=== PATIENT | female | born 1950 | race Caucasian/White ===

== ENCOUNTER 2020-11-04 15:34 | Outpatient (CLI) | payer MEDICARE, SELFPAY ==
[2020-11-04 17:01] LABS: Free T4 Free Thyroxine 0.88 ng/mL (0.78-2.19)
[2020-11-04 17:16] LABS: Thyroid Stimulating Hormone 0.936 uIU/mL (0.465-4.680)
== END 2020-11-04 15:35 | disposition home or self-care (01) ==
PROVIDERS: PCP Internal Medicine; Visit Provider Internal Medicine Endocrinology, Diabetes & Metabolism
DX: E04.1 Nontoxic single thyroid nodule (principal)
CPT/HCPCS: 36415; 84439; 84443

== ENCOUNTER 2021-10-28 16:25 | Outpatient (CLI) | payer MEDICARE, SELFPAY ==
--- NOTE | ~2021-10-28 | US_ITS ---
US thyroid INDICATION: Thyroid nodules TECHNIQUE: Real-time sonographic images of the thyroid gland were obtained. COMPARISON: No prior studies for comparison. FINDINGS: The right thyroid lobe measures 4.8 x 1.2 x 1.2 cm. The left thyroid lobe measures 5 x 1.5 x 1.6 cm. In the right lobe at the lower pole there is a mixed solid and cystic hypoechoic mass which is wider than tall, smoothly marginated and coarse echogenic foci (TR 4). In the left lobe there is a 1.7 cm c yst. Also in the left lobe there is a mixed solid and cystic hypoechoic nodule which is wider than ta ll, smoothly marginated and no echogenic foci (TR 3). IMPRESSION: 1. Small bilateral thyroid nodules, likely benign, which do not meet sonographic criteria for biopsy . Reviewed, dictated and finalized at location A. IMPRESSION: 1. Small bilateral thyroid nodules, likely benign, which do not meet sonograph ic criteria for biopsy.
== END 2021-10-28 16:26 | disposition home or self-care (01) ==
PROVIDERS: PCP Physician Assistant Medical; Visit Provider Internal Medicine Endocrinology, Diabetes & Metabolism
DX: E04.1 Nontoxic single thyroid nodule (principal)
CPT/HCPCS: 76536

== ENCOUNTER 2021-12-28 11:49 | Outpatient (CLI) | payer MEDICARE, SELFPAY ==
[2021-12-28 12:56] LABS: Free T4 Free Thyroxine 0.88 ng/mL (0.78-2.19)
== END 2021-12-28 11:50 | disposition home or self-care (01) ==
LOC: ANHLAB 11:52
PROVIDERS: PCP Physician Assistant Medical; Visit Provider Nurse Practitioner Family
DX: E04.1 Nontoxic single thyroid nodule (principal)
CPT/HCPCS: 36415; 84439; 84443

== ENCOUNTER 2021-12-30 09:53 | Outpatient (CLI) | payer MEDICARE, SELFPAY ==
--- NOTE | 2021-12-30 11:03 | ECG_ITS ---
Measurements Intervals [place] Rate: 67 P: 29 MA: 182 QRS: 19 QRSD: 64 T: 7 QT: 407 QTc: 430 Interpretive Statements SINUS RHYTHM LOW QRS VOLTAGE IN PRECORDIAL LEADS BASELINE ARTIFACT- I, II, III, AVR, AVL, AVF, V1-V6 BORDERLINE ECG NO PREVIOUS ECG AVAILABLE FOR COMPARISON Electronically Signed On 12-30-2021 12:39:48 CDT by Franko Stovall D.O.
[2021-12-30 11:56] LABS: Urine Cotinine NEGATIVE
[2021-12-30 11:59] LABS: Basophils Percent Auto 0.3 % (0.2-1.2); Eosinophils Absolute Auto 0.1 K/mm3 (0-0.3); Eosinophils Percent Auto 1.4 % (0-4.4); Hematocrit 38.1 % (37.0-47.0); Hemoglobin 13.2 g/dL (12.0-15.0); Immature Granulocyte Absolute 0.02 K/mm3 (0.00-0.031); Immature Granulocyte Percent A 0.3 % (0-0.5); Lymphocytes Absolute Auto 1.42 K/mm3 (0.9-3.2); Lymphocytes Percent Auto 24.4 % (18.3-44.2); Mean Corpuscular HGB Conc 34.6 g/dl (32-36); Mean Corpuscular Volume 103.8 fl (80-100); Mean Platelet Volume 10.9 fl (7.4-10.4); Monocytes Absolute Auto 0.5 K/mm3 (0.1-0.6); Monocytes Percent Auto 7.7 % (2.6-8.5); Neutrophils Absolute Auto 3.8 K/mm3 (1.3-6.7); Neutrophils Percent Auto 65.9 % (45.5-73.1); Platelet Count Result 177 k/mm3 (150-375); Red Blood Count 3.67 M/mm3 (4.2-5.4); Red Cell Distribution Width 12.2 % (11.5-14.5); White Blood Count 5.8 K/mm3 (4.5-10.0)
[2021-12-30 12:13] LABS: Albumin Level 4.3 g/dL (3.5-5.1); Estimated Glomerular Filt Rate > 60; Glucose 105 mg/dL (65-110)
[2021-12-30 14:27] LABS: Hemoglobin A1C 5.2 % (<5.7)
== END 2021-12-30 09:54 | disposition home or self-care (01) ==
LOC: ANHSURGERY 09:57
PROVIDERS: PCP Physician Assistant Medical; Visit Provider Orthopaedic Surgery
DX: Z01.818 Encounter for other preprocedural examination (principal); M17.12 Unilateral primary osteoarthritis, left knee
CPT/HCPCS: 80307; 82040; 82565; 82947; 83036; 85025; 86850; 86900; 86901; 87081; 93005

== ENCOUNTER 2022-01-10 08:56 | Outpatient (CLI) | payer MEDICARE, SELFPAY ==
--- NOTE | ~2022-01-10 | DEXA_ITS ---
Bone Density Report Name: BRICE PIERRE Age: 71 Sex: Female Ethnicity: White Date of : 1950 Indication: postmenopausal; screening for osteoporosis; prior fracture; Referring Provider: KUNAL PRADO Study: Bone densitometry was performed. Exam Date: January 10, 2022 Accession number: [id number] Bone Density: Region BMD T-score Z-score Classification AP Spine(L3, L4) 1.129 0.3 2.5 Normal World Health Organization criteria for BMD impression classify patients as: Normal (T-score at or above -1.0), Osteopenia (T-score between -1.0 and -2.5), or Osteoporosis (T-score at or below -2.5). Clinical Information Provided by Patient: Has had a low trauma fracture Has used the following medications: Vitamin D, Calcium Patient maximum height was 65 Menopause Age: 44 No regular weight bearing exercise Drinks caffeinated beverages Onset of menses at age 14 Number of children 2 Impression: The patient has normal bone mass. The patient has risk factors, including: previous fracture. Discussion: LOW RISK OF FRACTURE; BONE DENSITY IS WELL ABOVE THE MINIMUM DESIRABLE LEVEL AND ABOVE AVERAGE FOR AGE AND SEX AT ALL SKELETAL SITES TESTED. This person's bone density is above expected limits for age and sex. This is rarely clinically significant, but should be pursued if there are significant musculoskeletal complaints. The patient should follow a healthful lifestyle (good nutrition with adequate calcium and vitamin D, and appropriate weight-bearing exercise). Follow-Up: Consider repeating this study in 5 years or sooner if there is some new clinical indication. Reported by: [facility] on 01/10/2022 9:17:00 AM. Reviewed, dictated and finalized at location ANarendra PEREZ
== END 2022-01-10 08:57 | disposition home or self-care (01) ==
PROVIDERS: PCP Physician Assistant Medical; Visit Provider Internal Medicine Endocrinology, Diabetes & Metabolism
DX: Z78.0 Asymptomatic menopausal state (principal); E04.1 Nontoxic single thyroid nodule
CPT/HCPCS: 77080

== ENCOUNTER 2022-01-11 00:38 | Day surgery (SDC) | payer MEDICARE, SELFPAY ==
[2021-12-30 10:04] VITALS: BMI 32.3
--- NOTE | 2021-12-30 10:31 | PC.NURSE ---
Report to the Outpatient Waiting Room, entrance under the green pavilion located off [facility], at time ____0600___ on date _01/11/22 . OR Time: __729 . Time changes happen often and if your time is changed the preop area will call you the afternoon before. - You and your visitor will be asked to self-screen and do not enter if you have any COVID symptoms. - Only one visitor and NO children visitors are allowed at this time. - The patient visitor is requested to leave or wait in car when not with patient due to restrictions. - A mask is required within the hospital. Patients may have clear liquids (water, carbonated beverages, clear teas, apple juice) until 3 hours prior to surgery with a maximum of 20 ounces. - No food from midnight until time of surgery - Infants may have breast milk until 4 hours before surgery, infant formula 6 hours prior to surgery. - Children will be allowed to drink immediately following surgery. If applicable, please bring a bottle or sippy cup to assist with drinking. Juice, water, soda, and popsicles are readily available. For infants on formula, please bring formula the day of surgery. Pacifiers are allowed. Take the following medications with a SIP of water the morning of surgery: _CITALOPRAM Medications to discontinue per physician ___ALEVE PER DR KENDALL. ALL VITAMINS AND SUPPLEMENTS 3 DAYS PRE OP Date to take last dose___01/07/22 Please no make-up, nail ivorian, hairspray, perfume, deodorant, or body powder the day of surgery. No jewelry (including any body piercings) or valuables the day of surgery, leave them at home. Please take a shower or bath the night before, or the morning of, surgery with an antibacterial soap. Wear comfortable, loose fitting clothing. Children are encouraged to wear pajamas. - Jewelry must be removed prior to entering the operating room. Rings and piercings that are not removed may be cut off. - The hospital will not accept responsibility for valuables. - Please leave all valuables, including medications, at home the day of surgery. If you are going home after surgery, a licensed national flatbed truck driver must drive you home. - NO public transportation without another adult. - We recommend that an adult stay with you for 24 hours following discharge. - We also recommend that you do not drive, make important decision, drink alcoholic beverages, or take any drugs that were not prescribed by your health care provider for at least 24 hours after your discharge time. For Pediatric surgeries, we recommend two adults accompany the child home (only one inside the building at this time). Follow any additional instructions given to you from your surgeon. If you or anyone in your household have experienced Covid symptoms in the past week, please notify your surgeon or the nurse liaison at the phone number below for possible testing. VERBAL AND WRITTEN nstructions given to ___PATIENT and asked if any additional questions and then verbalized understanding. Patient advised to call surgeon office or pre surgery nurse liaison [phone] if any additional questions.
[2021-12-30 10:58] VITALS: BP 146/86; PULSE 72; RESP 18; TEMP 36.7; O2SAT 97
--- NOTE | 2022-01-09 12:53 | PM.IMHP ---
H&P: HPI History of Present Illness Date/Time: 01/09/22 12:53 Chief Complaint: Left knee pain due to advanced primary osteoarthritis. The patient is a 71-year-old female who is a chronic ongoing history of pain localized the left knee despite conservative measures including cortisone therapy and anti-inflammatories her symptoms continue. The patient has aching pain worse with activities and relieved by rest. X-rays show advanced fnlo-ua-[id number] osteoarthritis in the medial and patellofemoral articulations of the left knee. At this point the patient has discussed further treatment options in detail with Dr. Early she has failed conservative measures including recent Gel shot series she would now like to proceed with a total knee arthroplasty. Review of Systems Review of Systems: 10 point review of systems otherwise negative [facility] Surgical History Surgical History History of hip replacement, total Family History Family History Other Asthma Cerebrovascular accident Diabetes mellitus Family history of arthritis Family history of cardiovascular disease Family history of osteoporosis Family history of thyroid disease Social History Social History Smoking status: Never smoker Additional smoking assessment comments: DENIES ANY FORM OF TOBACCO USE Alcohol intake: never Spiritual care concerns: No Meds Home Medications and Allergies Home Medications Medication Instructions Recorded Confirmed Type atorvastatin 40 mg tablet (Lipitor) 40 mg PO DAILY #90 tabs 12/30/21 Rx rqgtaby-hcyjknzyj-yytw tablet 1 tablet PO DAILY 12/30/21 12/30/21 History cholecalciferol (vitamin D3) 25 25 mcg PO DAILY 12/30/21 12/30/21 History mcg (1,000 unit) tablet citalopram 20 mg tablet (Celexa) 20 mg PO DAILY #90 tabs 12/30/21 Rx cyanocobalamin (vitamin B-12) 1,000 mcg PO DAILY 12/30/21 12/30/21 History 1,000 mcg tablet esomeprazole magnesium 20 mg 20 mg PO DAILY 12/30/21 12/30/21 History capsule,delayed release (Nexium) ferrous sulfate 325 mg (65 mg 325 mg PO DAILY 12/30/21 12/30/21 History iron) tablet folic acid 400 mcg tablet 0.4 mg PO DAILY 12/30/21 12/30/21 History naproxen sodium 220 mg capsule 220 mg PO Q8H PRN Pain 12/30/21 12/30/21 History (Aleve) Allergies Allergy/AdvReac Type Severity Reaction Status Date / Time ciprofloxacin Allergy Unknown Unknown Verified 12/30/21 10:06 Exam Narrative: On exam the patient is noted be a well-developed well-nourished female in no acute distress alert oriented x3. Normal mood and affect. Patient is noted be 5 ft 5 in tall 185 lb with a BMI of 30.8. Hearing and vision are intact. Respiratory is good no distress. Pulse regular rate rhythm. Abdomen benign. Extremities showed the patient's left knee to be painful with manipulation and range of motion. She has tenderness on the joint lines with crepitation and pain with extremes of motion. There is no erythema heat effusion or signs of infection. Range of motion is well maintained. Neurovascularly she is intact skin is intact. Central nervous system within normal limits. Assessment and Plan Assessment and plan (1) Primary osteoarthritis of left knee: Code(s): M17.12 - Unilateral primary osteoarthritis, left knee Status: Acute Plan by previous x-ray and exam the patient is noted to have severe primary osteoarthritis left knee joint. The patient has discussed risks benefits limitations and alternatives to surgery in great detail with Dr. Early, she is now ready to proceed with a left total knee arthroplasty. The patient is scheduled to undergo surgery 01/11/2022 at [facility] with Dr. Early. The patient voiced understanding and agrees with the above plan.
[2022-01-11] VITALS (13 sets, daily range): BP systolic 115–155; BP diastolic 64–88; PULSE 73–88; RESP 12–18; TEMP 35.8–36.9; O2SAT 95–98
--- NOTE | ~2022-01-11 | XR_ITS ---
EXAMINATION: XR knee LT 2V DATE: 01/11/2022 09:48 INDICATION: Total left knee arthroplasty. Postop. TECHNIQUE: 2 views of left knee were obtained. COMPARISON: None. FINDINGS: There is a total left knee arthroplasty with patellar resurfacing in near-anatomic alignmen t. No fracture. There is gas in the knee joint and soft tissues, consistent with recent surgery. IMPRESSION: 1. Total left knee arthroplasty in near-anatomic alignment. Reviewed, dictated and finalized at location A.
[2022-01-11] MEDS: TRANEXAMIC ACID 1,000MG/ISO100 1,000 MG/100 ML BAG 200 MG IVPB (06:40)
[2022-01-11] MEDS: LACTATED RINGERS 1,000 ML 30 ML IV CONT ×2 (06:40→09:36)
[2022-01-11] MEDS: ACETAMINOPHEN 500 MG TABLET 1000 MG PO (06:45)
--- NOTE | 2022-01-11 07:10 | WPDHPUPDATE1 ---
History and Physical Update Update Date/Time: 01/11/22 07:10 History and Physical has been reviewed, including an updated exam of the patient. There are NO changes in the patient's condition. Risks, benefits, and alternatives have been discussed and questions answered. Patient agrees to proceed with procedure.
--- NOTE | 2022-01-11 07:20 | WPDANESPNB ---
Anes - Peripheral Nerve Block Date/Time: 01/11/22 07:20 I have discussed with the patient/family/POA the placement of a peripheral nerve block for post-operative pain management, including associated risks, benefits, complications, and side effects. Alternative methods of post-operative analgesia were detailed. Questions were solicited and answers provided to the satisfaction of the patient/family/POA. Time-Out: A pre-procedural Time-Out was completed immediately before starting the procedure and confirmed: Patient Identification, Site, Procedure, Patient Position and the Availability of Requisite Equipment. Clinical Indications: Acute post-operative pain management requested by the operative surgeon. Nerve Block Insertion Note Anes-nerve block: femoral left Patient position: supine Skin prep: chlorhexidine Needle: 22 gauge, stimulating, insulated echogenic needle. Needle length: 50 mm Technique: nerve stimulation lost at (mA) (0.4) Injectate: bupivacaine 0.5% with epi 5 mcg/ml (25cc no epi) Observations: tolerated well Complications: none Procedure start time:: 714 Procedure end time:: 719
[2022-01-11] MEDS: ceFAZolin 2 GM/D5W 50 ML 2 GM/50 ML BAG IVPB ×3 (07:28→23:28)
--- NOTE | 2022-01-11 08:04 | P.PNAN_ITS ---
Anes - Initial Pre Proc Eval Procedure: Operation Date: 01/11/22 07:30 Proposed Procedures p Left Total Knee Arthroplasty - Junaid Early MD Date/Time: 01/11/22 08:04 Surgeon: Junaid Early MD Pre Op Diagnosis: O.A Left Knee Patient Data Age: 71 Gender: F Height: 1.65 m Weight: 85.9 kg Last Vital Signs Temp 36.1 C L 01/11/22 07:00 Pulse 75 01/11/22 07:00 Resp 18 01/11/22 07:00 BP 148/84 H 01/11/22 07:00 Pulse Ox 97 01/11/22 07:00 O2 Del Method Room Air 01/11/22 07:00 Allergies Allergy/AdvReac Type Severity Reaction Status Date / Time ciprofloxacin Allergy Unknown Unknown Verified 01/11/22 07:32 Home Medications Medication Instructions Recorded Confirmed Type atorvastatin 40 mg tablet (Lipitor) 40 mg PO DAILY #90 tabs 12/30/21 01/11/22 Rx hmcqvby-iuuvddfzl-cydo tablet 1 tablet PO DAILY 12/30/21 01/11/22 History cholecalciferol (vitamin D3) 25 25 mcg PO DAILY 12/30/21 01/11/22 History mcg (1,000 unit) tablet citalopram 20 mg tablet (Celexa) 20 mg PO DAILY #90 tabs 12/30/21 01/11/22 Rx cyanocobalamin (vitamin B-12) 1,000 mcg PO DAILY 12/30/21 01/11/22 History 1,000 mcg tablet esomeprazole magnesium 20 mg 20 mg PO DAILY 12/30/21 01/11/22 History capsule,delayed release (Nexium) ferrous sulfate 325 mg (65 mg 325 mg PO DAILY 12/30/21 01/11/22 History iron) tablet folic acid 400 mcg tablet 0.4 mg PO DAILY 12/30/21 01/11/22 History naproxen sodium 220 mg capsule 220 mg PO Q8H PRN Pain 12/30/21 12/30/21 History (Aleve) Patient hx anesthesia problems: none Family hx anesthesia problems: none Results Review: All pre-operative results and documents have been reviewed as part of the pre- operative evaluation. [facility] Surgical History Surgical History History of hip replacement, total Family History Family History Other Asthma Cerebrovascular accident Diabetes mellitus Family history of arthritis Family history of cardiovascular disease Family history of osteoporosis Family history of thyroid disease Social History Social History Smoking status: Never smoker Additional smoking assessment comments: DENIES ANY FORM OF TOBACCO USE Alcohol intake: never Living arrangements: with family Spiritual care concerns: No Anes - Eval Final PreProcedure Day of Procedure 01/11/22 08:04 Patient weight: obese Heart: regular rate and rhythm Lungs: clear to auscultation Airway: Mallampati scale class II Neurological: alert and oriented Last oral intake: >/= 8 hours ASA classification: III Emergent: no Anesthetic plan: proceed Anesthesia type and monitoring: general LMA and standard monitoring Results Review: All pre-operative results and documents have been reviewed as part of the pre- operative evaluation. Informed Consent: The patient's anesthetic plan and its attendant risks and benefits were discussed with the patient/family/POA. Questions were solicited and answers provided to the satisfaction of the patient/family/POA.
--- NOTE | 2022-01-11 09:01 | P.OP_ITS ---
Procedure Note - Detailed Date of Procedure 01/11/22 Pre-op Diagnosis O.A Left Knee Post-op Diagnosis Same Procedure Performed [Left] total knee arthroplasty Surgeon Junaid Early MD Change Management Administrator Trae Lino Anesthesia General Description of Procedure The patient was brought to the operating room. General anesthetic was administered. Placed on the operating table and sterilely prepped and draped in usual manner. A longitudinal incision was made. Tourniquet inflated to 300 mmHg for a total of [45] minutes. Dissection carried down to the fascia. Medial parapatellar incision was made and the patella subluxated laterally. Patella cut from [23] to [14] mm and sized for a [31] mm button. The tibia cut perpendicular to the long axis and femur cut in 5 degrees of valgus, a [62.5] femur trialed. [71] tibia was felt to fit the best. The soft tissue balanced, hemostasis obtained. All [address], [71] tibia, [62.5] femur, [31] mm patella, and [] mm poly. Motion was 0-125 degrees with good stablility and flexion and extension. The wound was closed with #2 vicryl, 2-0 Vicryl and laverne. [employer] Estimated Blood Loss 200 Tourniquet Time 45 Drains No Packing No Pathology None sent Complications No immediate complications Condition Stable Disposition PACU
--- NOTE | 2022-01-11 10:57 | ADMGEN ---
This patient, Caprice Tejeda, was admitted to 3 [facility] Surg Room 300-01. Patient/family oriented to hospital policies and general routines including ID bracelet, bed and alarms, visiting hours, pain management, procedures, bathroom and other care routines, personal items, smoking policy, room service/diet, and visiting hours. Information on how to activate the Rapid Response Team has been discussed. Patient/Family are encouraged to report perceived risks to care and to ask questions if they do not understand what they are told or what they should do.
[2022-01-11] MEDS: SODIUM CHLORIDE 0.9% IV 1,000 ML 125 ML IV CONT (11:14)
[2022-01-11] MEDS: HYDROcodone/acetaminophen (*CRX) 7.5-325 MG TABLET 1 TAB PO ×2 (13:01→19:37)
--- NOTE | 2022-01-11 13:28 | PCOTNOTE ---
Attempted to see pt. for occupational therapy evaluation. Pt. declined to participate at this time, as she has just returned to bed and is tired. Nursing aware. Will follow.
[2022-01-11] MEDS: ONDANSETRON INJ 4 MG/2 ML VIAL IV PUSH (14:23)
[2022-01-11] MEDS: traMADol HCL (*CRX) 50 MG TABLET PO (16:29)
[2022-01-11] MEDS: CYCLOBENZAPRINE HCL 10 MG TABLET PO (16:29)
[2022-01-11] MEDS: RIVAROXABAN 10 MG TABLET PO (17:38)
[2022-01-11] MEDS: CELECOXIB 200 MG CAPSULE PO (17:38)
--- NOTE | 2022-01-11 18:38 | PM.IMCN ---
Assessment and Plan Assessment and plan (1) Status post total left knee replacement: Code(s): Z96.652 - Presence of left artificial knee joint Status: Acute Assessment and Plan: - postop care per Dr. Early. - Continue with ice to left knee - pain management per Dr. Early - DVT prophylaxis per Dr. Early, the patient is currently on Xarelto (2) Depression: Code(s): F32.A - Depression, unspecified Status: Acute Assessment and Plan: - I did resume her Celexa (3) Hyperlipidemia: Code(s): E78.5 - Hyperlipidemia, unspecified Status: Acute Assessment and Plan: - continue with her Lipitor (4) Obstructive sleep apnea: Code(s): G47.33 - Obstructive sleep apnea (adult) (pediatric) Status: Acute Assessment and Plan: - the patient did bring her own CPAP and she may use That. HPI Data of Consult Consult date: 01/11/22 Requesting Physician: Junaid Early MD Primary Care Provider: Maryse Melara PA-C Consult Narrative Narrative: Caprice Tejeda is a 71 year old female who has chronic left knee pain due to advanced primary osteoarthritis. She has been having ongoing localized pain to the left knee for quite some time. The patient's pain is worse with activities and relieved by rest. The patient had x-rays that show advanced bone on bone osteoarthritis on the medial and patellofemoral articulations of the left knee. The patient has failed conservative measures including recent gel shot series and proceed with a total left knee arthroplasty per Dr. Early today. See operative note from today per Dr. Early. The patient is being admitted as outpatient procedure extended recovery and the hospitalist group was asked to consult for medical management on the date of service of 01/11/2022. Review of Systems Review of Systems: See HPI All systems reviewed & are unremarkable except as noted in HPI and below Constitutional: Constitutional: Reports as per HPI and Reports no additional constitutional complaints Eyes: Eyes: Reports as per HPI and Reports no additional eye complaints ENT: Reports system reviewed and no additional complaints, except as documented and Reports Normal hearing present Cardiovascular: Cardiovascular: Reports no additional cardiovascular complaints Respiratory: Respiratory: Reports no additional respiratory complaints and Reports no additional respiratory complaints Gastrointestinal: Gastrointestinal: Reports as per HPI and Reports no additional gastrointestinal complaints Musculoskeletal: Musculoskeletal: Reports no additional musculoskeletal complaints Integumentary/Breasts: Skin/Breast: Reports system reviewed and no additional complaints, except as docu and Reports as per HPI Neurologic: Reports system reviewed and no additional complaints, except as documented, Reports as per HPI and Reports Normal hearing present Psychiatric: Psychiatric: Reports no additional psychiatric complaints and Reports as per HPI Endocrine: Endocrine: Reports no additional endocrine complaints Hematologic/Lymphatic: Hematologic/Lymphatic: Reports no additional hematologic/lymphatic complaints Allergic/Immunologic: Allergic/Immunologic: Reports no additional allergic/immunologic complaints [facility] Past Medical History Medical History (Updated 01/11/22 @ 18:41 by Yolanda Gonzales NP) Depression Hyperlipidemia Obstructive sleep apnea Surgical History Surgical History (Updated 01/11/22 @ 18:58 by Yolanda Gonzales NP) H/O cataract extraction History of hip replacement, total bilateral History of removal of pigmented skin lesion left arm Status post total left knee replacement Family History Family History Other Asthma Cerebrovascular accident Diabetes mellitus Family history of arthritis Family history of cardiovascular disease Family history of os
[2022-01-12] MEDS: HYDROcodone/acetaminophen (*CRX) 5-325 MG TABLET 1 TAB PO (00:41)
[2022-01-12 06:00] VITALS: BP 113/72; PULSE 74; RESP 18; TEMP 37.1; O2SAT 98
[2022-01-12 06:25] LABS: Basophils Percent Auto 0.2 % (0.2-1.2); Eosinophils Percent Auto 0.1 % (0-4.4); Hematocrit 33.5 % (37.0-47.0); Hemoglobin 11.4 g/dL (12.0-15.0); Immature Granulocyte Absolute 0.06 K/mm3 (0.00-0.031); Immature Granulocyte Percent A 0.5 % (0-0.5); Lymphocytes Absolute Auto 1.26 K/mm3 (0.9-3.2); Lymphocytes Percent Auto 11.5 % (18.3-44.2); Mean Corpuscular Hemoglobin 35.8 pg (26-34); Mean Corpuscular Volume 105.3 fl (80-100); Mean Platelet Volume 10.7 fl (7.4-10.4); Monocytes Absolute Auto 0.9 K/mm3 (0.1-0.6); Monocytes Percent Auto 8.1 % (2.6-8.5); Neutrophils Absolute Auto 8.7 K/mm3 (1.3-6.7); Neutrophils Percent Auto 79.6 % (45.5-73.1); Platelet Count Result 168 k/mm3 (150-375); Red Blood Count 3.18 M/mm3 (4.2-5.4); Red Cell Distribution Width 12.3 % (11.5-14.5)
[2022-01-12 06:50] LABS: Anion Gap 10 mmol/L (8-16); Blood Urea Nitrogen 16 mg/dL (7-17); Calcium 8.4 mg/dL (8.4-10.2); Carbon Dioxide 23 mmol/L (22-30); Chloride 100 mmol/L (98-107); Estimated CRCL calculation 56 ml/min; Estimated Glomerular Filt Rate > 60; Glucose 128 mg/dL (65-110); Potassium 3.8 mmol/L (3.4-5.0); Sodium 133 mmol/L (137-145)
[2022-01-12] MEDS: ceFAZolin 2 GM/D5W 50 ML 2 GM/50 ML BAG IVPB (06:59)
--- NOTE | 2022-01-12 07:33 | WPDANESPN ---
Anes - Prog Note Post-Op Date/Time: 01/12/22 07:33 Cardiovascular status: normal Respiratory status: normal Airway patency: baseline Mental status: baseline Post-Op hydration status: normal Vital Signs: Last Vital Signs Temp 37.1 C 01/12/22 06:00 Pulse 74 01/12/22 06:00 Resp 18 01/12/22 06:00 BP 113/72 01/12/22 06:00 Pulse Ox 98 01/12/22 06:00 O2 Del Method CPAP 01/11/22 20:50 O2 Flow Rate 2 01/11/22 10:40 Pain Score (VAS): 3 I/O: Intake & Output 01/11/22 01/11/22 01/12/22 15:59 23:59 07:59 Intake Total 640 360 50 Output Total 2000 Balance 640 360 -1950 Laboratory Tests 01/12/22 05:35 01/12/22 05:35 01/12/22 01/12/22 05:35 05:35 WBC 11.0 H RBC 3.18 L Hgb 11.4 L Hct 33.5 L MCV 105.3 H MCH 35.8 H MCHC 34.0 RDW 12.3 Plt Count 168 MPV 10.7 H Immature Gran % (Auto) 0.5 Neut % (Auto) 79.6 H Lymph % (Auto) 11.5 L [place] % (Auto) 8.1 Eos % (Auto) 0.1 Baso % (Auto) 0.2 Lymph # (Auto) 1.26 [place] # (Auto) 0.9 H Eos # (Auto) 0.0 Baso # (Auto) 0.0 Abs Immat Gran (auto) 0.06 H Absolute Neuts (auto) 8.7 H Absolute Nucleated RBC 0.0 Nucleated RBC % 0.0 Sodium 133 L Potassium 3.8 Chloride 100 Carbon Dioxide 23 Anion Gap 10 BUN 16 Creatinine 0.90 Estim Creat Clear Calc 56 Estimated GFR > 60 Glucose 128 H Calcium 8.4 Post-procedural complaints: none Patient Feedback: Patient satisfied with anesthetic care.
--- NOTE | 2022-01-12 09:00 | PM.IMPN ---
Progress Note: A&P Assessment and Plan (1) Status post total left knee replacement: Code(s): Z96.652 - Presence of left artificial knee joint Status: Acute Assessment and Plan: - POD 1 - postop care per Dr. Early. - Continue with ice to left knee - pain management tramadol, [place], Flexeril ordered - Cefazolin x 3 bags - PT/OT - DVT prophylaxis Xarelto (2) Depression: Code(s): F32.A - Depression, unspecified Status: Acute Assessment and Plan: - Continue Celexa - Mood stable at this time (3) Hyperlipidemia: Code(s): E78.5 - Hyperlipidemia, unspecified Status: Acute Assessment and Plan: - continue with her Lipitor (4) Obstructive sleep apnea: Code(s): G47.33 - Obstructive sleep apnea (adult) (pediatric) Status: Acute Assessment and Plan: - Continue home CPAP at home settings - OK to use personal machine Time Spent With Patient Time with patient: Greater than 35 minutes Subjective Date/time seen: 01/12/22 09:00 Interval history: 01/12/22 0900 Patient is stable at this time. Her mouth is dry. Her IV infiltrated today, and some of her antibiotic was infiltrated into her skin. She is worried about not getting it however she did get most of it. She denies any chest pain, shortness of breath, nausea, vomiting, diarrhea, constipation, weakness or fatigue. Labs and vital signs are current stable. 01/11/221837 Caprice Tejeda is a 71 year old female? who has chronic left knee pain due to advanced primary osteoarthritis.? She has been having ongoing localized pain to the? left knee for quite some time.? The patient's pain is worse with activities and relieved by rest.? The patient had x-rays that show advanced bone on bone osteoarthritis on the medial and patellofemoral? articulations of the left knee.? The patient has failed conservative measures including recent gel shot series and proceed with a total left knee arthroplasty per Dr. Early today.? See operative note from today per Dr. Early.? The patient is being admitted as outpatient procedure extended recovery and the hospitalist group was asked to consult for medical management on the date of service of 01/11/2022. Review of Systems Review of Systems: All systems reviewed & are unremarkable except as noted in HPI and below Exam Const: General: cooperative, healthy appearing, comfortable, no acute distress, well developed, alert, awake and Physically active Nutritional Appearance: average body habitus and well nourished Orientation/consciousness: oriented to person, oriented to place, oriented to time and patient oriented x3 Limitations: no limitations HENMT: Head: normal to inspection, No palpable skull fracture present, normocephalic and atraumatic Ears: hearing grossly normal bilaterally and external ears normal General nose exam: Normal external nose present and Normal nares present Eyes: General: appearance normal, both eyes and all related structures Alignment and Position: alignment normal Periorbital: periorbital findings normal Eyelids: eyelids normal Pupils: Equal, round and reactive pupils present EOM: EOMs intact bilaterally Neck: Neck: normal visual inspection, full ROM, no lymphadenopathy, trachea midline and supple Chest: Chest palpation & inspection: normal inspection of the chest Resp: Effort & Inspection: normal respiratory effort Auscultation: clear to auscultation bilaterally Cardio: Palpation: normal PMI Rate: regular rate Rhythm: regular rhythm Heart sounds: S1 normal heart sound present and S2 normal heart sound present Peripheral pulses: Peripheral pulses 2+ throughout GI: Inspection: normal to inspection Auscultation: normal bowel sounds Rectal Exam: deferred Back/Spine/Pelvis: Cervical Spine: cervical ROM normal Skin: General skin exam: normal color Lesions: no lesions Rashes: no rashes Wounds: no
[2022-01-12] MEDS: polyethylene glycoL 3350 17 GM POWD.PACK PO (09:11)
[2022-01-12] MEDS: CHOLECALCIFEROL 1,000 UNITS TABLET 1000 UNITS PO (09:11)
[2022-01-12] MEDS: HYDROcodone/acetaminophen (*CRX) 7.5-325 MG TABLET 1 TAB PO (09:12)
[2022-01-12] MEDS: CYANOCOBALAMIN 1,000 MCG TABLET 1000 MCG PO (09:12)
[2022-01-12] MEDS: ATORVASTATIN 40 MG TABLET PO (09:12)
[2022-01-12] MEDS: FOLIC ACID 0.4 MG TABLET PO (09:12)
[2022-01-12] MEDS: CITALOPRAM HYDROBROMIDE 20 MG TABLET PO (09:13)
[2022-01-12] MEDS: SENNA/DOCUSATE SODIUM TABLET 2 TAB PO (09:13)
[2022-01-12] MEDS: PANTOPRAZOLE 40 MG TABLET PO (09:13)
[2022-01-12] MEDS: CELECOXIB 200 MG CAPSULE PO (09:13)
[2022-01-12] MEDS: FERROUS SULFATE 324 MG TABLET PO (09:13)
[2022-01-12] MEDS: MULTIVITAMINS THERAPEUTIC TAB (*BKC) 1 TABLET PO (09:13)
--- NOTE | 2022-01-12 11:16 | PM.PNORT ---
Progress Note: A&P Assessment and Plan (1) Status post total left knee replacement: Code(s): Z96.652 - Presence of left artificial knee joint Status: Acute Plan Patient is postop day 1 status post left total knee arthroplasty. See discharge orders, patient voiced understanding and agrees to the above plan for her postop care start therapy next week. Will follow-up 2 weeks postop for staple removal and wound recheck she can call the office at any time for any complaint. Subjective Subjective Date/Time Seen: 01/12/22 11:16 Patient is postop day 1 status post left total knee arthroplasty. Doing well little slow in therapy this morning is having some pain in her knee was buckling a little bit because of it when she was up but now feeling better after some pain medication. No other complaints are noted. She is ready for discharge to home later today. Review of Systems Review of Systems: Ten point review of systems negative Exam Narrative: On exam the patient is not in acute distress alert oriented x3. Normal mood and affect. Left knee wound dressing is clean and dry neurovascularly she is intact without deficits calves are benign vital signs are stable she is afebrile tolerating physical therapy well, pain is now well controlled. Objective Data Vital Signs Vital Signs: Vital Signs - 24 hr 01/11/22 11:25 01/11/22 13:23 01/11/22 18:41 Temperature 36.1 C L Pulse Rate 79 73 Respiratory Rate 14 Blood Pressure 124/71 115/64 Pulse Oximetry 98 Oxygen Delivery Room Air 01/11/22 22:00 01/11/22 20:50 01/12/22 06:00 Temperature 36.9 C 37.1 C Pulse Rate 74 75 74 Respiratory Rate 17 18 Blood Pressure 118/71 113/72 Pulse Oximetry 98 97 98 Oxygen Delivery CPAP Intake/Output Intake/Output: Intake & Output 01/09/22 01/10/22 01/11/22 01/12/22 23:59 23:59 23:59 23:59 Intake Total 1050 318 Output Total 1999 Balance 1050 -1682 Meds/Results Medications: Active Medications Generic Name Dose Route Start Last Admin Trade Name Freq PRN Reason Stop Dose Admin Hydrocodone Bitart/Acetaminophen 1 tab 01/11/22 09:05 01/12/22 00:41 Hydrocodone/Acetaminophen (*Crx) 5-325 Mg Tablet PO 1 tab Q4H PRN Administration Pain Rated 4-6 Hydrocodone Bitart/Acetaminophen 1 tab 01/11/22 09:05 01/12/22 09:12 Hydrocodone/Acetaminophen (*Crx) 7.5-325 Mg Tablet PO 1 tab Q6H PRN Administration Pain Rated 7-10 Atorvastatin Calcium 40 mg 01/12/22 09:00 01/12/22 09:12 Atorvastatin 40 Mg Tablet PO 40 mg DAILY GISSELL Administration Celecoxib 200 mg 01/11/22 17:00 01/12/22 09:13 Celecoxib 200 Mg Capsule PO 200 mg BIDWM GISSELL Administration Citalopram Hydrobromide 20 mg 01/12/22 09:00 01/12/22 09:13 Citalopram Hydrobromide 20 Mg Tablet PO 20 mg DAILY GISSELL Administration Cyanocobalamin 1,000 mcg 01/12/22 09:00 01/12/22 09:12 Cyanocobalamin 1,000 Mcg Tablet PO 1,000 mcg DAILY GISSELL Administration Cyclobenzaprine HCl 10 mg 01/11/22 09:05 01/11/22 16:29 Cyclobenzaprine Hcl 10 Mg Tablet PO 10 mg Q8H PRN Administration Spasms Ferrous Sulfate 324 mg 01/12/22 09:00 01/12/22 09:13 Ferrous Sulfate 324 Mg Tablet PO 324 mg DAILY GISSELL Administration Folic Acid 0.4 mg 01/12/22 09:00 01/12/22 09:12 Folic Acid 0.4 Mg Tablet PO 0.4 mg DAILY GISSELL Administration Multivitamins Therapeutic 1 tablet 01/12/22 09:00 01/12/22 09:13 Multivitamins Therapeutic Tab (*Bkc) PO 02/11/22 08:59 1 tablet DAILY GISSELL Administration Naloxone HCl 0.1 mg 01/11/22 09:05 Naloxone Hcl 0.4 Mg/Ml Vial IV PUSH Q2M PRN Opiate Reversal Ondansetron HCl 4 mg 01/11/22 13:54 01/11/22 14:23 Ondansetron Inj 4 Mg/2 Ml Vial IV PUSH 4 mg Q4H PRN Administration Nausea And Vomiting Pantoprazole Sodium 40 mg 01/12/22 09:00 01/12/22 09:13 Pantoprazole 40 Mg Tablet PO 02/11/22 08:59 40 mg DAILY GISSELL Adm
--- NOTE | 2022-01-12 11:34 | PM.DS ---
DS: Admitting Diagnosis Discharge Date January 12, 2022 Admitting Diagnosis Severe primary osteoarthritis left knee joint. Discharge diagnosis severe primary osteoarthritis left knee joint status post total knee arthroplasty. DS: Summary Hospital Course Hospital Course: Patient was admitted overnight status post total knee arthroplasty postop day 1 tolerated therapy well pain was well controlled vital signs are stable she is afebrile neurovascular she is intact wounds clean dry calves are benign rate for discharge home. Time Spent with Patient Time attestation: Total time spent providing and/or coordinating discharge services: Exam Narrative: Vital signs stable afebrile neurovascular she is intact wound is clean dry calves are benign tolerated physical therapy well DS: Data Data Completed and Pending Labs on day of discharge: Labs from last 24 hours 01/12/22 01/12/22 05:35 05:35 WBC 11.0 H RBC 3.18 L Hgb 11.4 L Hct 33.5 L MCV 105.3 H MCH 35.8 H MCHC 34.0 RDW 12.3 Plt Count 168 MPV 10.7 H Immature Gran % (Auto) 0.5 Neut % (Auto) 79.6 H Lymph % (Auto) 11.5 L [place] % (Auto) 8.1 Eos % (Auto) 0.1 Baso % (Auto) 0.2 Lymph # (Auto) 1.26 [place] # (Auto) 0.9 H Eos # (Auto) 0.0 Baso # (Auto) 0.0 Abs Immat Gran (auto) 0.06 H Absolute Neuts (auto) 8.7 H Absolute Nucleated RBC 0.0 Nucleated RBC % 0.0 Sodium 133 L Potassium 3.8 Chloride 100 Carbon Dioxide 23 Anion Gap 10 BUN 16 Creatinine 0.90 Estim Creat Clear Calc 56 Estimated GFR > 60 Glucose 128 H Calcium 8.4 Discharge Plan Discharge Patient Disposition: Home, Self-Care Discharge Instructions: Home 01/12/22 Discharge home general diet activity as tolerated weightbearing as tolerated left lower extremity with a walker. Start outpatient physical therapy for total knee protocol beginning early next week at our office as prescheduled. Patient will change dressing daily keep the wound clean and dry watch for evidence of drainage or infection. Work on range of motion exercises daily for total knee protocol per Physical therapy here. Patient will continue Xarelto 10 mg daily for a total postoperative course of 2 weeks when this is complete then switch to aspirin 325 mg b.i.d. x1 month. Also [place] 7.5 mg every 6 hours p.r.n. pain. Follow-up 2 weeks postop for staple removal and wound recheck. The patient will call the office immediately for any problems difficulties or questions at [phone]. Patient Instructions: Rivaroxaban (By mouth), Knee Replacement (DC) Stand Alone Forms: Avoid NSAIDs, General Discharge Instructions Follow-up/Referrals: Junaid Early MD [Physician] - Discharge Medications: New hydrocodone-acetaminophen 7.5-325 mg tablet 1 tablet PO Q4H PRN (Reason: pain) Qty: 40 0RF Xarelto 10 mg tablet 10 mg PO DAILY Qty: 10 0RF Rx Instructions: for 35 days Continued cyanocobalamin (vitamin B-12) 1,000 mcg Tablet 1,000 mcg PO DAILY cholecalciferol (vitamin D3) 25 mcg (1,000 unit) Tablet 25 mcg PO DAILY qverzhc-evawaqsok-dqee Tablet 1 tablet PO DAILY ferrous sulfate 325 mg (65 mg iron) Tablet 325 mg PO DAILY folic acid 400 mcg Tablet 0.4 mg PO DAILY esomeprazole magnesium [Nexium] 20 mg Capsule,Delayed Release(Dr/Ec) 20 mg PO DAILY atorvastatin [Lipitor] 40 mg tablet 40 mg PO DAILY Qty: 90 0RF citalopram [Celexa] 20 mg tablet 20 mg PO DAILY Qty: 90 0RF Rx Instructions: pt needs to schedule an appt for further refills Discontinued naproxen sodium [Aleve] 220 mg Capsule 220 mg PO Q8H PRN (Reason: Pain)
--- NOTE | 2022-01-12 11:38 | PM.OP ---
Procedure Note - Brief Procedure Note - Brief Date of procedure: 01/12/22 Pre-op diagnosis: O.A Left Knee Severe primary osteoarthritis left knee Procedure performed: Left total knee arthroplasty Description of procedure: Isabel Lino, assisted Dr. Early with a left total knee arthroplasty January 11, 2022. I entered the room at 7:30 a.m. to assist with transfer the patient to the table placement a tourniquet position the patient prepping and draping of the surgical site. I then assisted with retraction hemostasis with suction and cautery and implant placement. Again the surgical wound closure for the deep tissues followed by skin closure placement the dressing and transferring the patient from the operative table to the stretcher to transfer to the recovery room. Patient tolerated procedure well. Blood loss was around 150 cc. I exited the room at approximately 9:30 a.m. for a total of 2 hours of time spent with the patient. Patient tolerated procedure well. No complications were noted. Surgeon: Junaid Early MD, 1st medical assistant dermatology Trae Lino, JESUS
[2022-01-12] MEDS: traMADol HCL (*CRX) 50 MG TABLET PO (13:31)
== END 2022-01-12 15:45 | disposition home or self-care (01) ==
LOC: ANHSURGERY 09:12 → ANH3MEDSUR 10:52
PROVIDERS: PCP Physician Assistant Medical; Visit Provider Orthopaedic Surgery
PROC: (CPT 27447; principal; 2022-01-11 07:30)
DX: M17.12 Unilateral primary osteoarthritis, left knee (principal); G89.18 Other acute postprocedural pain; F32.A Depression, unspecified; E78.5 Hyperlipidemia, unspecified; G47.33 Obstructive sleep apnea (adult) (pediatric); E66.9 Obesity, unspecified; Z68.31 Body mass index [BMI] 31.0-31.9, adult
CPT/HCPCS: 27447; 64447; 36415; 73560; 80048; 85025; 97110; 97116; 97161; 97165; 97530; 97535; A9270; C1713; C1776; J0360; J0690; J1100; J1170; J1885; J2250; J2270; J2405; J2704; J2795; J3010; J3370; J7030; J7120

== ENCOUNTER 2022-06-20 09:33 | Outpatient (CLI) | payer MEDICARE, SELFPAY ==
[2022-06-20 12:13] LABS: Hemoglobin A1C 5.2 % (<5.7)
[2022-06-20 12:18] LABS: Urine Cotinine NEGATIVE
== END 2022-06-20 09:34 | disposition home or self-care (01) ==
PROVIDERS: PCP Physician Assistant Medical; Visit Provider Orthopaedic Surgery
DX: Z01.818 Encounter for other preprocedural examination (principal); M17.11 Unilateral primary osteoarthritis, right knee
CPT/HCPCS: 80307; 83036; 86850; 86900; 86901; 87081

== ENCOUNTER 2022-06-29 12:58 | Inpatient (IN) | payer MEDICARE, SELFPAY ==
--- NOTE | 2022-06-20 09:47 | PC.NURSE ---
PRE-OP INSTRUCTIONS, PLEASE READ CAREFULLY Report to the Outpatient Waiting Room, entrance under the green pavilion located off [facility], at time _0600_ on date _06/28/22_. Planned Procedure Time: _0730_. PACK A SMALL OVERNIGHT BAG AND LEAVE IN THE CAR ALONG WITH YOUR WALKER Time changes happen often and if your time is changed the preop area will call you the afternoon before. - You and your visitor will be asked to self-screen and do not enter if you have any COVID symptoms. - Only one visitor is requested with a max of two and NO children visitors are allowed at this time. - The patient visitor may be requested to leave or wait in car when not with patient due to distancing restrictions. - A mask is optional within the hospital at this time. -VISITING HOURS 8AM-8PM Patients may have clear liquids (water, carbonated beverages, clear teas, apple juice) until 3 hours prior to surgery (0430 AM) with a maximum of 20 ounces. - No food from midnight until time of surgery Take the following medications with a SIP of water the morning of surgery: _CITALOPRAM_ DO NOT STOP ANY OF YOUR OTHER PRESCRIPTION MEDICATIONS PRIOR TO SURGERY ?EXCEPT THE FOLLOWING Medications to discontinue per ANESTHESIA -_ALL VITAMINS AND SUPPLEMENTS 3 DAYS PRIOR TO SURGERY, Date to take last dose 06/24/22 Please no make-up, nail slovak, hairspray, perfume, deodorant, or body powder the day of surgery. No jewelry (including any body piercings) or valuables the day of surgery, leave them at home. Please take a shower or bath the night before, or the morning of, surgery with an antibacterial soap. Wear comfortable, loose fitting clothing. - Jewelry must be removed prior to entering the operating room. Rings and piercings that are not removed may be cut off. - The hospital will not accept responsibility for valuables. - Please leave all valuables, including medications, at home the day of surgery. If you are going home after surgery, a licensed driver education instructor must drive you home. - NO public transportation without another adult if you receive anesthesia. - We recommend that an adult stay with you for 24 hours following discharge. - We also recommend that you do not drive, make important decision, drink alcoholic beverages, or take any drugs that were not prescribed by your health care provider for at least 24 hours after your discharge time. Follow any additional instructions given to you from your surgeon. If you or anyone in your household have experienced Covid symptoms in the past week, please notify your surgeon or the nurse liaison at the phone number below for possible testing. Instructions given to _PATIENT_and asked if any additional questions and then verbalized understanding. Patient advised to call surgeon office or pre surgery nurse liaison [phone] if any additional questions.
[2022-06-20 10:07] VITALS: BP 148/86; PULSE 70; RESP 18; TEMP 36.6; O2SAT 98; BMI 31.4
--- NOTE | 2022-06-23 14:40 | PM.IMHP ---
H&P: HPI History of Present Illness Date/Time: 06/23/22 14:40 Chief Complaint: patient is a 72-year-old female who sees Dr. Early regarding her right knee. The patient has a chronic ongoing history of pain localized to the right knee this is due to primary osteoarthritis. The patient last year had a left total knee arthroplasty for the same issue she is doing well with this she would like to proceed with the right side. She has aching pain that limits her daily activities in the right knee she has trouble standing or walking for long periods she has startup pain rest pain and night pain. Despite conservative measures including cortisone therapy and anti-inflammatories symptoms continue she would like to proceed with right total knee arthroplasty at this time. Review of Systems Review of Systems: Ten point review of systems otherwise negative [facility] Past Medical History Medical History Depression Hyperlipidemia Obstructive sleep apnea Surgical History Surgical History H/O cataract extraction History of hip replacement, total bilateral History of removal of pigmented skin lesion left arm Status post total left knee replacement Family History Family History Other Asthma Cerebrovascular accident Diabetes mellitus Family history of arthritis Family history of cardiovascular disease Family history of osteoporosis Family history of thyroid disease Social History Social History Social History: the patient has been for almost 51 years now. Her is a durable power of contract attorney for healthcare. 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 She has 2 children. She does not use any marijuana alcohol or illicit drugs. Code status full code Smoking status: Never smoker Second hand tobacco smoke exposure: No Additional smoking assessment comments: PT DENIES ALL FORMS OF TOBACCO USE Alcohol intake: never Substance use: never Substance use type: does not use Lack of Transportation: No Lack of Food: Never True Current Housing: I Have Housing Concerned About Future Housing: No Difficulty Paying Gas/Electric Bills: No Difficulty Paying for Meds: No Currently Unemployed: No Education: Associate Degree Difficulty w/ Childcare or Family Care: No Living arrangements: with family Occupation/Education: retired Gender identity (if verbalized by the patient): Female Spiritual care concerns: No Meds Home Medications and Allergies Home Medications Medication Instructions Recorded Confirmed Type cyanocobalamin (vitamin B-12) 1,000 mcg PO DAILY 12/30/21 06/20/22 History 1,000 mcg tablet esomeprazole magnesium 20 mg 20 mg PO DAILY 12/30/21 06/20/22 History capsule,delayed release (Nexium) ferrous sulfate 325 mg (65 mg 325 mg PO DAILY 12/30/21 06/20/22 History iron) tablet folic acid 400 mcg tablet 0.4 mg PO DAILY 12/30/21 06/20/22 History atorvastatin 40 mg tablet (Lipitor) 40 mg PO DAILY #90 tabs 04/05/22 06/20/22 Rx citalopram 20 mg tablet (Celexa) 20 mg PO DAILY #90 tabs 04/05/22 06/20/22 Rx Ca 600 mg-D3 20 mcg-mag oxide 50 1 tablet PO DAILY 06/20/22 06/20/22 History ms-Mv-lymgla-manganese-boron tablet (Calcium 600-D3 Plus (mag-zinc)) ascorbic acid (vitamin C) 500 mg 500 mg PO DAILY 06/20/22 06/20/22 History tablet (Vitamin C) cholecalciferol (vitamin D3) 25 25 mcg PO DAILY 06/20/22 06/20/22 History mcg (1,000 unit) capsule Allergies Allergy/AdvReac Type Severity Reaction Status Date / Time No Known Allergies Allergy Verified 06/20/22 10:00 Exam Narrative: on exam the patient is noted be well-developed well-nourished female no acute distress alert or
[2022-06-28] VITALS (16 sets, daily range): BP systolic 101–143; BP diastolic 68–83; PULSE 64–84; RESP 12–20; TEMP 36.2–38.6; O2SAT 92–100
[2022-06-28] MEDS: LACTATED RINGERS 1,000 ML 30 ML IV CONT ×2 (06:30→09:34)
[2022-06-28] MEDS: ACETAMINOPHEN 500 MG TABLET 1000 MG PO (06:30)
[2022-06-28] MEDS: TRANEXAMIC ACID 1,000MG/ISO100 1,000 MG/100 ML BAG 200 MG IVPB (06:45)
--- NOTE | 2022-06-28 06:49 | WPDANESEPPF ---
Anes - Initial Pre Proc Eval Procedure: Operation Date: 06/28/22 07:30 Proposed Procedures p Right Total Knee Arthroplasty - Junaid Early MD Date/Time: 06/28/22 06:49 Surgeon: Junaid Early MD Pre Op Diagnosis: O.A. Rt Knee Patient Data Age: 72 Gender: F Height: 1.65 m Weight: 85.5 kg Last Vital Signs Temp 36.6 C 06/20/22 10:07 Pulse 70 06/20/22 10:07 Resp 18 06/20/22 10:07 BP 148/86 H 06/20/22 10:07 Pulse Ox 98 06/20/22 10:07 O2 Del Method Room Air 06/20/22 10:07 Allergies Allergy/AdvReac Type Severity Reaction Status Date / Time No Known Allergies Allergy Verified 06/20/22 10:00 Home Medications Medication Instructions Recorded Confirmed Type cyanocobalamin (vitamin B-12) 1,000 mcg PO DAILY 12/30/21 06/20/22 History 1,000 mcg tablet esomeprazole magnesium 20 mg 20 mg PO DAILY 12/30/21 06/20/22 History capsule,delayed release (Nexium) ferrous sulfate 325 mg (65 mg 325 mg PO DAILY 12/30/21 06/20/22 History iron) tablet folic acid 400 mcg tablet 0.4 mg PO DAILY 12/30/21 06/20/22 History atorvastatin 40 mg tablet (Lipitor) 40 mg PO DAILY #90 tabs 04/05/22 06/20/22 Rx citalopram 20 mg tablet (Celexa) 20 mg PO DAILY #90 tabs 04/05/22 06/20/22 Rx Ca 600 mg-D3 20 mcg-mag oxide 50 1 tablet PO DAILY 06/20/22 06/20/22 History ew-Za-ikvmjg-manganese-boron tablet (Calcium 600-D3 Plus (mag-zinc)) ascorbic acid (vitamin C) 500 mg 500 mg PO DAILY 06/20/22 06/20/22 History tablet (Vitamin C) cholecalciferol (vitamin D3) 25 25 mcg PO DAILY 06/20/22 06/20/22 History mcg (1,000 unit) capsule Patient hx anesthesia problems: none Family hx anesthesia problems: none Results Review: All pre-operative results and documents have been reviewed as part of the pre-operative evaluation. [facility] Past Medical History Medical History Depression Hyperlipidemia Obstructive sleep apnea Surgical History Surgical History H/O cataract extraction History of hip replacement, total bilateral History of removal of pigmented skin lesion left arm Status post total left knee replacement Family History Family History Other Asthma Cerebrovascular accident Diabetes mellitus Family history of arthritis Family history of cardiovascular disease Family history of osteoporosis Family history of thyroid disease Social History Social History Social History: the patient has been for almost 51 years now. Her is a durable power of attorney at law for healthcare. 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 She has 2 children. She does not use any marijuana alcohol or illicit drugs. Code status full code Smoking status: Never smoker Second hand tobacco smoke exposure: No Additional smoking assessment comments: PT DENIES ALL FORMS OF TOBACCO USE Alcohol intake: never Substance use: never Substance use type: does not use Lack of Transportation: No Lack of Food: Never True Current Housing: I Have Housing Concerned About Future Housing: No Difficulty Paying Gas/Electric Bills: No Difficulty Paying for Meds: No Currently Unemployed: No Education: Associate Degree Difficulty w/ Childcare or Family Care: No Living arrangements: with family Occupation/Education: retired Gender identity (if verbalized by the patient): Female Spiritual care concerns: No Anes - Eval Final PreProcedure Day of Procedure 06/28/22 06:49 Patient weight: obese Heart: regular rate and rhythm Lungs: clear to auscultation Airway: Mallampati scale class II Neurological: alert and oriented Last oral intake: >/= 8 hours ASA classification: III Emergent: no Anesthe
--- NOTE | 2022-06-28 06:51 | WPDHPUPDATE1 ---
History and Physical Update Update Date/Time: 06/28/22 06:51 History and Physical has been reviewed, including an updated exam of the patient. There are NO changes in the patient's condition. Risks, benefits, and alternatives have been discussed and questions answered. Patient agrees to proceed with procedure.
--- NOTE | 2022-06-28 06:58 | WPDANESPNB ---
Anes - Peripheral Nerve Block Date/Time: 06/28/22 06:58 I have discussed with the patient/family/POA the placement of a peripheral nerve block for post-operative pain management, including associated risks, benefits, complications, and side effects. Alternative methods of post-operative analgesia were detailed. Questions were solicited and answers provided to the satisfaction of the patient/family/POA. Time-Out: A pre-procedural Time-Out was completed immediately before starting the procedure and confirmed: Patient Identification, Site, Procedure, Patient Position and the Availability of Requisite Equipment. Clinical Indications: Acute post-operative pain management requested by the operative surgeon. Nerve Block Insertion Note Anes-nerve block: adductor canal right Patient position: supine Skin prep: chlorhexidine Needle: 22 gauge, stimulating, insulated echogenic needle. Needle length: 80 mm Technique: ultrasound Injectate: bupivacaine 0.5% with epi 5 mcg/ml (30cc - no epi) Observations: tolerated well Complications: none Procedure start time:: 722 Procedure end time:: 726
[2022-06-28] MEDS: ceFAZolin 2 GM/D5W 50 ML 2 GM/50 ML BAG IVPB (07:32)
[2022-06-28] MEDS: GENTAMICIN BONE CEMENT REFOBACIN 1 EACH TOPICAL (08:07)
--- NOTE | 2022-06-28 09:09 | P.OP_ITS ---
Procedure Note - Detailed Date of Procedure 06/28/22 Pre-op Diagnosis O.A. Rt Knee Post-op Diagnosis Same Procedure Performed [side] total knee arthroplasty Surgeon Junaid Early MD Purifying Plant Operator Trae Lino Anesthesia General Description of Procedure The patient was brought to the operating room. General anesthetic was administered. Placed on the operating table and sterilely prepped and draped in usual manner. A longitudinal incision was made. Tourniquet inflated to 300 mmHg for a total of [42] minutes. Dissection carried down to the fascia. Medial parapatellar incision was made and the patella subluxated laterally. Patella cut from [22] to [14] mm and sized for a [31] mm button. The tibia cut perpendicular to the long axis and femur cut in 5 degrees of valgus, a [62.5] femur trialed. [67] tibia was felt to fit the best. The soft tissue balanced, hemostasis obtained. All [address], [67] tibia, [62.5] femur, [31] mm patella, and [10] mm poly. Motion was 0-125 degrees with good stablility and flexion and extension. The wound was closed with #2 vicryl, 2-0 Vicryl and laverne. Implants Apeni[employer]guard Biomet Estimated Blood Loss 200 Drains No Packing No Pathology None sent Complications No immediate complications Condition Stable Disposition PACU
[2022-06-28] MEDS: fentaNYL CITRATE INJ (*CRX) 100 MCG/2 ML VIAL 25 MCG IV PUSH ×4 (09:54→10:19)
--- NOTE | 2022-06-28 10:02 | P.OPB_ITS ---
Procedure Note - Brief Procedure Note - Brief Date of procedure: 06/28/22 Pre-op diagnosis: O.A. Rt Knee Preop diagnosis advanced primary osteoarthritis right knee Postop diagnosis same status post right total knee arthroplasty Procedure performed: Right total knee arthroplasty Description of procedure: Patient was taken the operating room at [facility] on June 28, 2022, I enter the room at 7:30 a.m. I then assisted with placement of the tourniquet, positioning the patient on the table and a sterile prep and drape in preparation for the surgical procedure. Dr. Early then entered the room and commence with the procedure. Throughout the procedure I assisted with wound retraction hemostasis with suction and cautery, positioning of the leg, positioning of the implant followed by cement removal and irrigation throughout the procedure. Once Dr. Early completed his portion of the procedure I then irrigated the wound made sure hemostasis was obtained with cautery and I also placed Surgicel powder throughout the operative site. I then proceeded to close the joint capsule with 2. Vicryl, 2. Once the capsule was closed I then proceeded with further irrigation cauterization and then I closed the superficial skin layers with 2-0 Vicryl 2-0 Quill closed the skin with surgical laverne. I then placed a sterile dressing with Xeroform gauze, 4x4s and soft roll followed by a long leg wrap with an Joao wrap. I then assisted with transfer of the patient from the operating table to the stretcher for transport to recovery room. The patient had no intraoperative complications was in stable condition his expected to spend the night be discharged home the following day if stable. I exited the room at 9:30 a.m.. Total blood loss was approximately 150 cc Surgeon: Surgeon Junaid Early MD hospital aides and assistants teacher Trae Lino PA-C
[2022-06-28] MEDS: HYDROmorphone HCL INJ (*CRX) 1 MG/ML SYR 0.5 MG IV PUSH ×4 (10:28→10:57)
--- NOTE | 2022-06-28 11:31 | ADMGEN ---
This patient, Caprice Tejeda, was admitted to Medical Room 253-01. Patient/family oriented to hospital policies and general routines including ID bracelet, bed and alarms, visiting hours, pain management, procedures, bathroom and other care routines, personal items, smoking policy, room service/diet, and visiting hours. Information on how to activate the Rapid Response Team has been discussed. Patient/Family are encouraged to report perceived risks to care and to ask questions if they do not understand what they are told or what they should do.
--- NOTE | 2022-06-28 13:35 | PM.IMCN ---
Assessment and Plan Assessment and plan (1) S/P total knee arthroplasty: Code(s): Z96.659 - Presence of unspecified artificial knee joint Status: Acute Assessment and Plan: PT OT per ortho Postop care per Ortho DVT prophylaxis per Ortho. The patient stated that she will be on Eliquis. The patient is requesting a coupon card to help pay for the Xarelto. I looked in our office and we do not have 1 available however believe that she can get 1 from cardiac care unit nurse and I will consult them. PT OT per ortho The patient was nauseated so she was given Zofran. Pain management per Ortho. (2) Depression: Code(s): F32.A - Depression, unspecified Status: Acute Assessment and Plan: Continue with Celexa (3) Hyperlipidemia: Code(s): E78.5 - Hyperlipidemia, unspecified Status: Acute Assessment and Plan: Continue Lipitor (4) Obstructive sleep apnea: Code(s): G47.33 - Obstructive sleep apnea (adult) (pediatric) Status: Acute Assessment and Plan: Titrate CPAP settings to home settings. Plan I think orthopedic physician for allowing us to consult on this pleasant patient. HPI Data of Consult Consult date: 06/28/22 Requesting Physician: Junaid Early MD Primary Care Provider: Maryse Melara PA-C Consult Narrative Narrative: Caprice Tejeda is a 72 year old female who has a history of primary osteoarthritis to her right knee. The patient has had a left total knee arthroplasty within the last year and has done well with that. The patient has achy pain that limits her daily activities to the right knee. She also has trouble standing and walking for long periods of time. She has start-up pain rest pain and night pain. Patient has tried various conservative measures including cortisone therapy and anti-inflammatory but her symptoms still continue. The patient had a right total knee arthroplasty per Dr. Early today. The patient is feeling somewhat nauseated today. The patient also stated she had difficulty awakening from the anesthesia. Please see operative note for her side total knee arthroplasty per Dr. Early. The patient was admitted per orthopedic physician the hospitalist was asked to consult for medical management. The date of service 06/28/2022. Review of Systems Review of Systems: See HPI All systems reviewed & are unremarkable except as noted in HPI and below Constitutional: Constitutional: Reports as per HPI and Reports no additional constitutional complaints Eyes: Eyes: Reports as per HPI and Reports no additional eye complaints ENT: Reports system reviewed and no additional complaints, except as documented and Reports Normal hearing present Cardiovascular: Cardiovascular: Reports no additional cardiovascular complaints Respiratory: Respiratory: Reports no additional respiratory complaints and Reports no additional respiratory complaints Gastrointestinal: Gastrointestinal: Reports as per HPI and Reports no additional gastrointestinal complaints Musculoskeletal: Musculoskeletal: Reports no additional musculoskeletal complaints Integumentary/Breasts: Skin/Breast: Reports system reviewed and no additional complaints, except as docu and Reports as per HPI Neurologic: Reports system reviewed and no additional complaints, except as documented, Reports as per HPI and Reports Normal hearing present Psychiatric: Psychiatric: Reports no additional psychiatric complaints and Reports as per HPI Endocrine: Endocrine: Reports no additional endocrine complaints Hematologic/Lymphatic: Hematologic/Lymphatic: Reports no additional hematologic/lymphatic complaints Allergic/Immunologic: Allergic/Immunologic: Reports no additional allergic/immunologic complaints PMFSH Past Medical History Medical History (Updated 06/28/22 @ 21:45 by Yolanda Gonzales NP) Cataract Depression Hyperlipidemia Obstructive sleep apnea Osteoporosis Surgic
[2022-06-28] MEDS: SODIUM CHLORIDE 0.9% IV 1,000 ML 125 ML IV CONT (14:08)
[2022-06-28] MEDS: HYDROcodone/acetaminophen (*CRX) 7.5-325 MG TABLET 1 TAB PO ×2 (15:14→22:42)
[2022-06-28] MEDS: ONDANSETRON INJ 4 MG/2 ML VIAL IV PUSH (15:39)
[2022-06-28] MEDS: ceFAZolin 1 GM/NS 50 ML 1 GM/50 ML BAG IVPB ×2 (15:41→23:01)
--- NOTE | 2022-06-28 16:21 | PC.NURSE ---
home meds that were ordered for 1100 not given on time due to pt refusing due to nausea.
[2022-06-28] MEDS: ASCORBIC ACID 500 MG TABLET PO (17:31)
[2022-06-28] MEDS: ATORVASTATIN 40 MG TABLET PO (17:31)
[2022-06-28] MEDS: CHOLECALCIFEROL 1,000 UNITS TABLET 1000 UNITS PO (17:31)
[2022-06-28] MEDS: CYANOCOBALAMIN 1,000 MCG TABLET 1000 MCG PO (17:32)
[2022-06-28] MEDS: FAMOTIDINE 20 MG TABLET PO (17:32)
[2022-06-28] MEDS: SENNA/DOCUSATE SODIUM TABLET 2 TAB PO (17:32)
[2022-06-28] MEDS: PANTOPRAZOLE 40 MG TABLET PO (17:33)
[2022-06-28] MEDS: CELECOXIB 200 MG CAPSULE PO (17:33)
[2022-06-28] MEDS: RIVAROXABAN 10 MG TABLET PO (17:34)
[2022-06-28] MEDS: HYDROcodone/acetaminophen (*CRX) 5-325 MG TABLET 1 TAB PO (18:21)
[2022-06-29] VITALS (7 sets, daily range): BP systolic 113–164; BP diastolic 58–80; PULSE 73–84; RESP 16–20; TEMP 36.6–37.1; O2SAT 93–97
--- NOTE | ~2022-06-29 | XR_ITS ---
EXAMINATION: [id number] DATE: 06/28/2022 09:45 INDICATION: Total right knee arthroplasty. Postop. TECHNIQUE: 2 views of right knee were obtained. COMPARISON: None. FINDINGS: There is a total right knee arthroplasty with patellar resurfacing in near-anatomic alignme nt. No fracture. There is gas in the knee joint and soft tissues, consistent with recent surgery. Ant erior skin laverne are noted. IMPRESSION: 1. Total right knee arthroplasty in near-anatomic alignment. Reviewed, dictated and finalized at location A. PER LOADER OPERATOR
[2022-06-29] MEDS: HYDROcodone/acetaminophen (*CRX) 5-325 MG TABLET 1 TAB PO (02:05)
[2022-06-29 06:00] LABS: Basophils Percent Auto 0.1 % (0.2-1.2); Hemoglobin 10.9 g/dL (12.0-15.0); Immature Granulocyte Absolute 0.11 K/mm3 (0.00-0.031); Immature Granulocyte Percent A 0.9 % (0-0.5); Lymphocytes Absolute Auto 0.91 K/mm3 (0.9-3.2); Lymphocytes Percent Auto 7.3 % (18.3-44.2); Mean Corpuscular HGB Conc 34.1 g/dl (32-36); Mean Corpuscular Hemoglobin 35.7 pg (26-34); Mean Corpuscular Volume 104.9 fl (80-100); Mean Platelet Volume 10.5 fl (7.4-10.4); Monocytes Absolute Auto 0.9 K/mm3 (0.1-0.6); Monocytes Percent Auto 6.8 % (2.6-8.5); Neutrophils Absolute Auto 10.6 K/mm3 (1.3-6.7); Neutrophils Percent Auto 84.9 % (45.5-73.1); Platelet Count Result 166 k/mm3 (150-375); Red Blood Count 3.05 M/mm3 (4.2-5.4); Red Cell Distribution Width 12.8 % (11.5-14.5); White Blood Count 12.5 K/mm3 (4.5-10.0)
[2022-06-29] MEDS: HYDROcodone/acetaminophen (*CRX) 7.5-325 MG TABLET 1 TAB PO ×3 (06:09→21:00)
[2022-06-29 06:14] LABS: Anion Gap 5 mmol/L (8-16); Blood Urea Nitrogen 14 mg/dL (7-17); Calcium 8.6 mg/dL (8.4-10.2); Carbon Dioxide 23 mmol/L (22-30); Chloride 98 mmol/L (98-107); Estimated CRCL calculation 69 ml/min; Estimated Glomerular Filt Rate > 60; Glucose 114 mg/dL (65-110); Potassium 4.3 mmol/L (3.4-5.0); Sodium 126 mmol/L (137-145)
[2022-06-29] MEDS: ceFAZolin 1 GM/NS 50 ML 1 GM/50 ML BAG IVPB (08:20)
[2022-06-29] MEDS: polyethylene glycoL 3350 17 GM POWD.PACK PO (08:23)
[2022-06-29] MEDS: FERROUS SULFATE 324 MG TABLET PO (08:24)
[2022-06-29] MEDS: PANTOPRAZOLE 40 MG TABLET PO (08:24)
[2022-06-29] MEDS: CHOLECALCIFEROL 1,000 UNITS TABLET 1000 UNITS PO (08:25)
[2022-06-29] MEDS: FOLIC ACID 0.4 MG TABLET PO (08:25)
[2022-06-29] MEDS: CYANOCOBALAMIN 1,000 MCG TABLET 1000 MCG PO (08:25)
[2022-06-29] MEDS: FAMOTIDINE 20 MG TABLET PO ×2 (08:25→21:00)
[2022-06-29] MEDS: CELECOXIB 200 MG CAPSULE PO ×2 (08:26→16:48)
[2022-06-29] MEDS: SENNA/DOCUSATE SODIUM TABLET 2 TAB PO ×2 (08:26→16:47)
[2022-06-29] MEDS: ATORVASTATIN 40 MG TABLET PO (08:26)
[2022-06-29] MEDS: ASCORBIC ACID 500 MG TABLET PO (08:26)
--- NOTE | 2022-06-29 08:54 | PM.IMPN ---
Progress Note: A&P Assessment and Plan (1) S/P total knee arthroplasty: Code(s): Z96.659 - Presence of unspecified artificial knee joint Status: Acute Assessment and Plan: patient underwent right total knee arthroplasty on 06/28/2022 management per Orthopedic surgery (2) Hyponatremia: Code(s): E87.1 - Hypo-osmolality and hyponatremia Status: Acute Assessment and Plan: sodium this morning is 126. 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 patient does admit to drinking excess water implement 1200 cc fluid restriction check urine electrolytes hold Celexa recheck sodium this afternoon (3) Depression: Code(s): F32.A - Depression, unspecified Status: Acute Assessment and Plan: mood is stable at this time Celexa on home due to hyponatremia resume once improvement in sodium is this is not a chronic issue and Celexa is less likely to be contributing (4) Hyperlipidemia: Code(s): E78.5 - Hyperlipidemia, unspecified Status: Acute Assessment and Plan: Continue statin (5) Obstructive sleep apnea: Code(s): G47.33 - Obstructive sleep apnea (adult) (pediatric) Status: Acute Assessment and Plan: continue home CPAP Plan continue docusate/ senna and MiraLax. Recommend continuing this patient remains less mobile and on pain medications Subjective Date/time seen: 06/29/22 08:54 Interval history: date of service: 06/29/2022 Caprice Tejeda is a 72-year-old female with history of BETO hyperlipidemia, depression, osteoporosis, osteoarthritis s/p right total knee arthroplasty on 06/28/2022 who is seen in follow-up for medical management. She reports she is doing well today. Her pain is well controlled at this time, currently rates it as 2/10 after taking [place] this morning. She has a little bit of pain in her right buttock and she believes this was due to positioning during surgery and the way she is laying in bed. She participated in PT yesterday and tolerated this. She was able to get up out of bed but then she developed some nausea so she was put back in bed. Today she denies any nausea or vomiting. She has not eaten yet as her breakfast tray has not been delivered but she was able to tolerate her dinner last night. She has been able to void independently postoperatively. She denies any urinary symptoms. She has not had a bowel movement postoperatively but is passing flatus. She denies shortness of breath, cough, or chest pain. patient plans to return home where she this with her . She has no stairs in her home. She has already arranged outpatient physical therapy. Review of Systems Review of Systems: All systems reviewed & are unremarkable except as noted in HPI and below Exam Narrative: General: Well-nourished, well-appearing 72-year-old female, sitting up in bed, comfortable, NARD Neuro: awake, alert and oriented x4, speech clear, no focal neuro deficits noted HEENMT: normocephalic, atraumatic, EOMI, sclerae anicteric, moist oral mucosa Respiratory: clear to auscultation anteriorly, nonlabored breathing Cardio: regular rate, regular rhythm with S1-S2 Abdomen: nondistended, normoactive bowel sounds, soft, nontender to palpation Extremities: right leg is elevated on pillows, left knee incision is covered with bandage, bilateral calves without edema, erythema, or tenderness to palpation, DP pulses 2+ bilaterally, able to wiggle toes bilaterally, sensation intact Skin: no rashes or lesions, warm and dry Psych: appropriate mood and affect, judgment and insight intact Objective Data Vital Signs Vital Signs: Vital Signs - 24 hr 06/28/22 09:34 06/28/22 09:49 06/28/22 10:04 Temperature 101.4 F H 97.8 F Pulse Rate 64 78 82 Respiratory Rate 16 16 15 Blood Pressure 101/68 135/80 143/82 H Pulse Oximetry 95 100
[2022-06-29 11:35] LABS: Creatinine Urine 72.3 mg/dL
[2022-06-29 11:36] LABS: Sodium Urine Random 39 meq/L
[2022-06-29 12:17] LABS: Sodium 129 mmol/L (137-145)
--- NOTE | 2022-06-29 12:34 | WPDANESPN ---
Anes - Prog Note Post-Op Date/Time: 06/29/22 12:34 Vital Signs: Last Vital Signs Temp 37.0 C 06/29/22 10:10 Pulse 75 06/29/22 10:10 Resp 16 06/29/22 08:26 BP 113/58 L 06/29/22 10:10 Pulse Ox 93 06/29/22 10:10 O2 Del Method Room Air 06/29/22 08:26 O2 Flow Rate 2 06/28/22 11:30 Pain Score (VAS): 2 I/O: Intake & Output 06/28/22 06/29/22 06/29/22 23:59 07:59 15:59 Intake Total 740 1400 290 Output Total 350 Balance 390 1400 290 Laboratory Tests 06/29/22 05:32 06/29/22 12:04 06/29/22 06/29/22 06/29/22 05:32 05:32 11:09 WBC 12.5 H RBC 3.05 L Hgb 10.9 L Hct 32.0 L MCV 104.9 H MCH 35.7 H MCHC 34.1 RDW 12.8 Plt Count 166 MPV 10.5 H Immature Gran % (Auto) 0.9 H Neut % (Auto) 84.9 H Lymph % (Auto) 7.3 L Knott % (Auto) 6.8 Eos % (Auto) 0.0 Baso % (Auto) 0.1 L Lymph # (Auto) 0.91 Knott # (Auto) 0.9 H Eos # (Auto) 0.0 Baso # (Auto) 0.0 Abs Immat Gran (auto) 0.11 H Absolute Neuts (auto) 10.6 H Absolute Nucleated RBC 0.0 Nucleated RBC % 0.0 Sodium 126 L Potassium 4.3 Chloride 98 Carbon Dioxide 23 Anion Gap 5 L BUN 14 Creatinine 0.70 Estim Creat Clear Calc 69 Estimated GFR > 60 Glucose 114 H Calcium 8.6 Ur Random Sodium 39 Urine Creatinine 72.3 06/29/22 12:04 WBC RBC Hgb Hct MCV MCH MCHC RDW Plt Count MPV Immature Gran % (Auto) Neut % (Auto) Lymph % (Auto) Knott % (Auto) Eos % (Auto) Baso % (Auto) Lymph # (Auto) Knott # (Auto) Eos # (Auto) Baso # (Auto) Abs Immat Gran (auto) Absolute Neuts (auto) Absolute Nucleated RBC Nucleated RBC % Sodium 129 L Potassium Chloride Carbon Dioxide Anion Gap BUN Creatinine Estim Creat Clear Calc Estimated GFR Glucose Calcium Ur Random Sodium Urine Creatinine Patient Feedback: Patient satisfied with anesthetic care.
--- NOTE | 2022-06-29 16:37 | PM.PNORT ---
Progress Note: A&P Assessment and Plan (1) S/P total knee arthroplasty: Code(s): Z96.659 - Presence of unspecified artificial knee joint Status: Acute Plan Patient is postop day 1 status post right total knee arthroplasty. Everything looks good except her sodium was low 126 so this is being addressed, once this has been corrected and stabilized the patient will be deemed stable for discharge home per an orthopedic standpoint. We will hold her discharge until tomorrow awaiting medical clearance. The patient voiced understanding and agrees to the above plan. Upon discharge she will start Xarelto 10 mg daily for a total postop course of 2 weeks when this is complete she will start aspirin 325 mg b.i.d. x1 month. She will follow-up at our office at 2 weeks postop for staple removal and wound recheck and start physical therapy next Sunday at our office for total knee protocol. She will keep the wound clean and dry change dressing daily she can be weight-bearing as tolerated with a walker at all times for support and balance. The patient will call the office immediately for any further problems difficulties or questions she voiced understanding and agrees with the above plan. She is also discharged with [place] 7.5 mg every 6 hours p.r.n. severe pain the prescriptions for Xarelto and [place] have been called in to her pharmacy electronically. Subjective Subjective Date/Time Seen: 06/29/22 16:37 Patient doing well feeling well pain is well controlled and had a good therapy session this afternoon ambulated independently and states her pain is minimal. Had motion 0-110 degrees per the patient. Patient is postop day 1 status post total knee arthroplasty would have been able to be discharged today except for the fact that she had significant hyponatremia which is being addressed currently. Hopefully we can discharge to home tomorrow. Review of Systems Review of Systems: Ten point review of systems negative Exam Narrative: on exam the patient is noted be in no acute distress alert oriented x3. Normal mood and affect. Really not having much pain. Has good range of motion mild to moderate swelling is noted right knee with some ecchymosis but the wound is clean and dry no evidence of postop complications. Able to ambulate well in physical therapy today. Neurovascular she is intact calves are benign. Objective Data Vital Signs Vital Signs: Vital Signs - 24 hr 06/28/22 17:06 06/28/22 22:02 06/28/22 22:00 Temperature 36.6 C 36.4 C Pulse Rate 80 77 78 Respiratory Rate 16 14 20 Blood Pressure 118/68 123/73 Pulse Oximetry 98 98 95 Oxygen Delivery Room Air 06/29/22 02:00 06/29/22 07:37 06/29/22 08:26 Temperature 36.6 C 36.9 C Pulse Rate 76 73 Respiratory Rate 16 16 16 Blood Pressure 119/67 122/67 Pulse Oximetry 97 96 96 Oxygen Delivery Room Air 06/29/22 10:10 06/29/22 15:00 Temperature 37.0 C 37.1 C Pulse Rate 75 73 Respiratory Rate 20 Blood Pressure 113/58 L 134/69 Pulse Oximetry 93 96 Oxygen Delivery Intake/Output Intake/Output: Intake & Output 06/26/22 06/27/22 06/28/22 06/29/22 23:59 23:59 23:59 23:59 Intake Total 1740 2130 Output Total 350 Balance 1390 2130 Meds/Results Medications: Active Medications Generic Name Dose Route Start Last Admin Trade Name Freq PRN Reason Stop Dose Admin Hydrocodone Bitart/Acetaminophen 1 tab 06/28/22 11:21 06/29/22 02:05 Hydrocodone/Acetaminophen (*Crx) 5-325 Mg Tablet PO 1 tab Q4H PRN Administration Pain Rated 4-6 Hydrocodone Bitart/Acetaminophen 1 tab 06/28/22 11:21 06/29/22 14:45 Hydrocodone/Acetaminophen (*Crx) 7.5-325 Mg Tablet PO 1 tab Q6H PRN Administration Pain Rated 7-10 Ascorbic Acid 500 mg 06/28/22 11:21 06/29/22 08:26 Ascorbic Acid 500 Mg Tablet PO 500 mg DAILY GISSELL Administration Atorvastatin Calcium 40 mg 06/28/22 11:21 06/29/22 08:26 Atorvastatin 40 Mg Tablet PO 40 mg
[2022-06-29] MEDS: RIVAROXABAN 10 MG TABLET PO (16:49)
[2022-06-29 18:28] LABS: Sodium 130 mmol/L (137-145)
[2022-06-29] MEDS: ONDANSETRON INJ 4 MG/2 ML VIAL IV PUSH (22:12)
[2022-06-30 01:37] VITALS: BP 150/82; PULSE 83; RESP 16; TEMP 36.4; O2SAT 97
[2022-06-30 03:27] VITALS: BP 172/81; PULSE 80; RESP 16; TEMP 36.5; O2SAT 95
[2022-06-30] MEDS: HYDROcodone/acetaminophen (*CRX) 7.5-325 MG TABLET 1 TAB PO ×2 (03:31→09:58)
[2022-06-30] MEDS: PANTOPRAZOLE 40 MG TABLET PO (08:22)
[2022-06-30] MEDS: polyethylene glycoL 3350 17 GM POWD.PACK PO (08:22)
[2022-06-30] MEDS: CELECOXIB 200 MG CAPSULE PO (08:22)
[2022-06-30] MEDS: ATORVASTATIN 40 MG TABLET PO (08:22)
[2022-06-30] MEDS: SENNA/DOCUSATE SODIUM TABLET 2 TAB PO (08:22)
[2022-06-30 08:23] VITALS: PULSE 80; RESP 16; O2SAT 95
[2022-06-30] MEDS: FERROUS SULFATE 324 MG TABLET PO (08:23)
[2022-06-30] MEDS: FAMOTIDINE 20 MG TABLET PO (08:23)
[2022-06-30] MEDS: FOLIC ACID 0.4 MG TABLET PO (08:23)
[2022-06-30] MEDS: CHOLECALCIFEROL 1,000 UNITS TABLET 1000 UNITS PO (08:23)
[2022-06-30] MEDS: ASCORBIC ACID 500 MG TABLET PO (08:23)
[2022-06-30] MEDS: CYANOCOBALAMIN 1,000 MCG TABLET 1000 MCG PO (08:23)
--- NOTE | 2022-06-30 08:30 | PM.IMPN ---
Progress Note: A&P Assessment and Plan (1) S/P total knee arthroplasty: Code(s): Z96.659 - Presence of unspecified artificial knee joint Status: Acute Assessment and Plan: patient underwent right total knee arthroplasty on 06/28/2022 management per Orthopedic surgery DVT Xarelto per ortho Pain medications as indicated (2) Hyponatremia: Code(s): E87.1 - Hypo-osmolality and hyponatremia Status: Acute Assessment and Plan: sodium this morning is 126. 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 Triglycerides 129 Increase statin to 80mg PO daily (5) Obstructive sleep apnea: Code(s): G47.33 - Obstructive sleep apnea (adult) (pediatric) Status: Acute Assessment and Plan: continue home CPAP Plan continue docusate/senna and MiraLax. Recommend continuing this patient remains less mobile and on pain medications Time Spent With Patient Time: 48 minutes Time with patient: Greater than 35 minutes Subjective Date/time seen: 06/30/22829 Interval history: 06/30/22829 Patient is feeling better today. Patient was concerned about her sodium level however it was 130 today and more stable. She is also concerned about her blood pressure however she did state that her pain has been greatly intensified especially when walking and moving. She did have an episode of nausea however it was when she was moving around in the room. Currently she denies any chest pain, shortness a breath, diarrhea or constipation. Patient does appear stable and is stable for discharge per hospitalist standpoint 06/29/2022 Caprice Tejeda is a 72-year-old female with history of BETO hyperlipidemia, depression, osteoporosis, osteoarthritis s/p right total knee arthroplasty on 06/28/2022 who is seen in follow-up for medical management. She reports she is doing well today. Her pain is well controlled at this time, currently rates it as 2/10 after taking [place] this morning. She has a little bit of pain in her right buttock and she believes this was due to positioning during surgery and the way she is laying in bed. She participated in PT yesterday and tolerated this. She was able to get up out of bed but then she developed some nausea so she was put back in bed. Today she denies any nausea or vomiting. She has not eaten yet as her breakfast tray has not been delivered but she was able to tolerate her dinner last night. She has been able to void independently postoperatively. She denies any urinary symptoms. She has not had a bowel movement postoperatively but is passing flatus. She denies shortness of breath, cough, or chest pain. patient plans to return home where she this with her . She has no stairs in her home. She has already arranged outpatient physical therapy. Review of Systems Review of Systems: All systems reviewed & are unremarkable except as noted in HPI and below Exam Narrative: General: Well-nourished, well-appearing 72-year-old female, sitting up in bed, comfortable, NARD Neuro: awake, alert and oriented x4, speech clear, no focal neuro deficits noted HEENMT: normocephalic, atraumatic, EOMI, sclerae anicteric,
[2022-06-30 10:00] VITALS: BP 165/83; PULSE 76; RESP 16; TEMP 36.6; O2SAT 97
--- NOTE | 2022-06-30 10:21 | PCOTNOTE ---
Attempted to see patient this am, however patient refused. Pt stated she will complete ADLs when she gets home. Pt's said, This may be bad, but I help her at home when she needs it. We have a pretty good set up. I'll help her in the shower and stay close if she needs anything. Pt and had no concerns as pertains to OT prior to discharge.
--- NOTE | 2022-06-30 13:42 | PM.DS ---
DS: Admitting Diagnosis Discharge Date 06/30/22 Admitting Diagnosis primary OA right knee DC diagnosis same, s/p right total knee arthroplasty DS: Summary Hospital Course Hospital Course: Pt POD #1 was found to have hyponatremia and this was treated by the hopitalist, kept an extra night. Otherwise was doing well. POD#2 Na+ was better and stable, pt VSS afebrile NV intact wound clean and dry calves benign. Deemed stable for DC to home Time Spent with Patient Time attestation: Total time spent providing and/or coordinating discharge services: DS: Data Data Completed and Pending Labs on day of discharge: Labs from last 24 hours 06/29/22 17:59 Sodium 130 L Discharge Plan Discharge Attending physician on discharge: Junaid Early Consulting providers: Nila Barrett Discharging Clinician: Trae Lino Anticipated Discharge Date/Time: 06/30/22 11:47 Patient Disposition: Home, Self-Care Activity: other - see discharge instructions Diet: regular Wound Care Instructions: other - see discharge instructions Discharge Instructions: Junaid Early M.D [facility], [place] [id number] POST-OPERATIVE DISCHARGE INSTRUCTIONS TOTAL KNEE ARTHROPLASTY 1. When resting, lie on back with leg elevated above hear to minimize swelling. Significant swelling could indicate a blood clot and if this occurs call the office (or go to the ER) to have a venous ultrasound. 2. Do exercise 5 times a day. 3. Do not sit with leg down except for meals. 4. Wound Care: Nursing will give additional dressings at discharge. Patient to change dressing at home 1 week from surgery, then maintain until seen in office. 5. May shower with dressing in place. 6. Follow weight bearing status instructions. IMPORTANT: Remember not to sit in the chair for more than 30 minutes at a time. As a rule, during the first 14 days after surgery, only sit in the chair to work on the chair knee bending stretch exercise, for meals or for use of the restroom. Sitting in the chair promotes significant swelling in the knee and leg which will make the knee stiff and more painful and which simulates having a blood clot in the veins of the leg. If this type of significant diffuse swelling occurs, an ultrasound at the hospital will be necessary to rule out a blood clot. Be up walking around with the walker for a few minutes every hour while awake and then rest laying on your back on the couch or in bed with your leg elevated on cushions or pillows. Do not rest in the chair. Patient Instructions: Rivaroxaban (By mouth), Pain Management (DC), Knee Replacement (DC) Stand Alone Forms: General Discharge Instructions Follow-up/Referrals: Junaid Early MD [Physician] - Trae Lino PA [Physician Welfare Director] - Discharge Medications: New hydrocodone-acetaminophen 7.5-325 mg tablet 1 tablet PO Q4H PRN (Reason: pain) Qty: 40 0RF Xarelto 10 mg tablet 10 mg PO DAILY Qty: 10 0RF Rx Instructions: for 35 days Continued cyanocobalamin (vitamin B-12) 1,000 mcg Tablet 1,000 mcg PO DAILY ferrous sulfate 325 mg (65 mg iron) Tablet 325 mg PO DAILY folic acid 400 mcg Tablet 0.4 mg PO DAILY esomeprazole magnesium [Nexium] 20 mg Capsule,Delayed Release(Dr/Ec) 20 mg PO DAILY ascorbic acid (vitamin C) [Vitamin C] 500 mg Tablet 500 mg PO DAILY cholecalciferol (vitamin D3) 25 mcg (1,000 unit) Capsule 25 mcg PO DAILY Ca-D3-mag px-mlqa-rxy-imelda-bor [Calcium 600-D3 Plus (mag-zinc)] 600 mg calcium- 20 mcg-50 mg Tablet 1 tablet PO DAILY atorvastatin [Lipitor] 40 mg tablet 40 mg PO DAILY Qty: 90 0RF Rx Instructions: pt needs an appt for further refills citalopram [Celexa] 20 mg tablet 20 mg PO DAILY Qty: 90 0RF Rx Instructions: pt needs to schedule an appt for further refills
== END 2022-06-30 13:20 | disposition home or self-care (01) | DRG 470 ==
LOC: ANHSURGERY 14:02 → ANH2MED 06-30 11:18
PROVIDERS: Physician Assistant; Admitting Provider Orthopaedic Surgery; PCP Physician Assistant Medical; Visit Provider Physician Assistant Surgical
PROC: 0SRC0J9 Replacement of Right Knee Joint with Synthetic Substitute, Cemented, Open Approach (ICD-10-PCS; CPT 27447; principal; 2022-06-28 07:30)
DX: M17.11 Unilateral primary osteoarthritis, right knee (principal); E22.2 Syndrome of inappropriate secretion of antidiuretic hormone; E78.5 Hyperlipidemia, unspecified; F32.A Depression, unspecified; G47.33 Obstructive sleep apnea (adult) (pediatric); M81.0 Age-related osteoporosis without current pathological fracture; Z96.643 Presence of artificial hip joint, bilateral; Z96.652 Presence of left artificial knee joint; E66.9 Obesity, unspecified; Z68.31 Body mass index [BMI] 31.0-31.9, adult; Z98.49 Cataract extraction status, unspecified eye
CPT/HCPCS: 36415; 73560; 80048; 82570; 84295; 84300; 85025; 97110; 97116; 97161; 97165; 97530; A9270; C1713; C1776; J0360; J0690; J1100; J1170; J1885; J2250; J2270; J2405; J2704; J2795; J3010; J3370; J7030; J7120

== ENCOUNTER 2023-07-25 00:24 | Day surgery (SDC) | payer MEDICARE, SELFPAY ==
[2023-07-13 14:08] VITALS: BMI 31.8
--- NOTE | 2023-07-23 12:40 | SUR.PREOP ---
Patient called regarding upcoming procedure. Voicemail left regarding appointment times.
[2023-07-25 10:05] VITALS: BP 121/88; PULSE 78; RESP 16; TEMP 35.9; O2SAT 99; BMI 30.7
[2023-07-25] MEDS: LACTATED RINGERS 1,000 ML 150 ML IV CONT (10:33)
--- NOTE | 2023-07-25 10:42 | WPDANESEPPF ---
Anes - Initial Pre Proc Eval Procedure: Operation Date: 07/25/23 11:30 Proposed Procedures p Screening Colonoscopy - Reagan Clifford MD Date/Time: 07/25/23 10:42 Surgeon: Reagan Clifford MD Pre Op Diagnosis: Neoplasm screening, hx of colon polyps Patient Data Age: 73 Gender: F Height: 1.65 m Weight: 83.7 kg Last Vital Signs Temp 96.7 F L 07/25/23 10:05 Pulse 78 07/25/23 10:05 Resp 16 07/25/23 10:05 BP 121/88 07/25/23 10:05 Pulse Ox 99 07/25/23 10:05 O2 Del Method Room Air 07/25/23 10:05 Allergies Allergy/AdvReac Type Severity Reaction Status Date / Time No Known Allergies Allergy Verified 07/25/23 10:18 Home Medications Medication Instructions Recorded Confirmed Type cyanocobalamin (vitamin B-12) 500 mcg PO DAILY 12/30/21 07/25/23 History 1,000 mcg tablet esomeprazole magnesium 20 mg 20 mg PO DAILY 12/30/21 07/25/23 History capsule,delayed release (Nexium) folic acid 400 mcg tablet 0.4 mg PO DAILY 12/30/21 07/25/23 History Ca 600 mg-D3 20 mcg-mag oxide 50 1 tablet PO DAILY 06/20/22 07/25/23 History cg-Xf-jdpwxd-manganese-boron tablet (Calcium 600-D3 Plus (mag-zinc)) ascorbic acid (vitamin C) 500 mg 500 mg PO DAILY 06/20/22 07/25/23 History tablet (Vitamin C) cholecalciferol (vitamin D3) 25 25 mcg PO DAILY 06/20/22 07/25/23 History mcg (1,000 unit) capsule atorvastatin 40 mg tablet 40 mg PO QHS #90 tabs 05/29/23 07/25/23 Rx omega 7-kob-pth-fish oil 1,000 mg 1 cap PO BID 05/29/23 07/25/23 History (120 mg-180 mg) capsule (Fish Oil) citalopram 20 mg tablet 30 mg PO DAILY #135 tabs 06/26/23 07/25/23 Rx prednisone 10 mg tablet 10 mg PO BID #20 tabs 07/17/23 07/25/23 Rx Patient hx anesthesia problems: none Family hx anesthesia problems: none Results Review: All pre-operative results and documents have been reviewed as part of the pre-operative evaluation. [facility] Past Medical History Medical History Body mass index [BMI] 29.0-29.9, adult (08/29/18) Cataract Depression Folic acid deficiency (non anemic) Hyperlipidemia Nontoxic multinodular goiter Obstructive sleep apnea Osteoporosis Vitamin B12 deficiency Vitamin D deficiency Surgical History Surgical History H/O cardiac catheterization H/O cataract extraction History of hip replacement, total bilateral History of removal of pigmented skin lesion left arm S/P total knee arthroplasty Right knee 06/28/2022 Dr. Early Status post total left knee replacement Family History Family History Other Asthma Cerebrovascular accident Diabetes mellitus Family history of arthritis Family history of cardiovascular disease Family history of osteoporosis Family history of thyroid disease Social History Social History (Updated 07/17/23 @ 08:58 by Julieta Veronica [facility]) Social History: the patient has been for almost 52 years now. 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 She has 2 children. She does not use any marijuana alcohol or illicit drugs. Code status full code Smoking status: Never smoker Second hand tobacco smoke exposure: No Additional smoking assessment comments: PT DENIES ALL FORMS OF TOBACCO USE Alcohol intake: never Substance use: never Substance use type: does not use Do You Feel Safe in your Home?: Yes Lack of Transportation: No Lack of Food: Never True Current Housing: I Have Housing Concerned About Future Housing: No Difficulty Paying Gas/Electric Bills: No Difficulty Paying for Meds: No Currently Unemployed: No Education: Associate Degree Difficulty w/ Childcare or Family Care: No Living arrangements: w
--- NOTE | 2023-07-25 10:49 | WPDANESEPPF ---
Anes - Initial Pre Proc Eval Procedure: Operation Date: 07/25/23 11:30 Proposed Procedures p Screening Colonoscopy - Reagan Clifford MD Date/Time: 07/25/23 10:49 Surgeon: Reagan Clifford MD Pre Op Diagnosis: Neoplasm screening, hx of colon polyps Patient Data Age: 73 Gender: F Height: 1.65 m Weight: 83.7 kg Last Vital Signs Temp 96.7 F L 07/25/23 10:05 Pulse 78 07/25/23 10:05 Resp 16 07/25/23 10:05 BP 121/88 07/25/23 10:05 Pulse Ox 99 07/25/23 10:05 O2 Del Method Room Air 07/25/23 10:05 Allergies Allergy/AdvReac Type Severity Reaction Status Date / Time No Known Allergies Allergy Verified 07/25/23 10:18 Home Medications Medication Instructions Recorded Confirmed Type cyanocobalamin (vitamin B-12) 500 mcg PO DAILY 12/30/21 07/25/23 History 1,000 mcg tablet esomeprazole magnesium 20 mg 20 mg PO DAILY 12/30/21 07/25/23 History capsule,delayed release (Nexium) folic acid 400 mcg tablet 0.4 mg PO DAILY 12/30/21 07/25/23 History Ca 600 mg-D3 20 mcg-mag oxide 50 1 tablet PO DAILY 06/20/22 07/25/23 History da-Lg-igqyqd-manganese-boron tablet (Calcium 600-D3 Plus (mag-zinc)) ascorbic acid (vitamin C) 500 mg 500 mg PO DAILY 06/20/22 07/25/23 History tablet (Vitamin C) cholecalciferol (vitamin D3) 25 25 mcg PO DAILY 06/20/22 07/25/23 History mcg (1,000 unit) capsule atorvastatin 40 mg tablet 40 mg PO QHS #90 tabs 05/29/23 07/25/23 Rx omega 1-uwl-mns-fish oil 1,000 mg 1 cap PO BID 05/29/23 07/25/23 History (120 mg-180 mg) capsule (Fish Oil) citalopram 20 mg tablet 30 mg PO DAILY #135 tabs 06/26/23 07/25/23 Rx prednisone 10 mg tablet 10 mg PO BID #20 tabs 07/17/23 07/25/23 Rx Patient hx anesthesia problems: none Family hx anesthesia problems: none Results Review: All pre-operative results and documents have been reviewed as part of the pre-operative evaluation. [facility] Past Medical History Medical History Body mass index [BMI] 29.0-29.9, adult (08/29/18) Cataract Depression Folic acid deficiency (non anemic) Hyperlipidemia Nontoxic multinodular goiter Obstructive sleep apnea Osteoporosis Vitamin B12 deficiency Vitamin D deficiency Surgical History Surgical History H/O cardiac catheterization H/O cataract extraction History of hip replacement, total bilateral History of removal of pigmented skin lesion left arm S/P total knee arthroplasty Right knee 06/28/2022 Dr. Early Status post total left knee replacement Family History Family History Other Asthma Cerebrovascular accident Diabetes mellitus Family history of arthritis Family history of cardiovascular disease Family history of osteoporosis Family history of thyroid disease Social History Social History (Updated 07/17/23 @ 08:58 by Julieta Veronica [facility]) Social History: the patient has been for almost 52 years now. 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 She has 2 children. She does not use any marijuana alcohol or illicit drugs. Code status full code Smoking status: Never smoker Second hand tobacco smoke exposure: No Additional smoking assessment comments: PT DENIES ALL FORMS OF TOBACCO USE Alcohol intake: never Substance use: never Substance use type: does not use Do You Feel Safe in your Home?: Yes Lack of Transportation: No Lack of Food: Never True Current Housing: I Have Housing Concerned About Future Housing: No Difficulty Paying Gas/Electric Bills: No Difficulty Paying for Meds: No Currently Unemployed: No Education: Associate Degree Difficulty w/ Childcare or Family Care: No Living arrangements: w
--- NOTE | 2023-07-25 11:07 | PM.HPGS ---
History of Present Illness History of Present Illness Consent: Risks, benefits, and alternatives have been discussed and questions answered. Patient agrees to proceed with procedure. Chief complaint: Neoplasm screening, hx of colon polyps Narrative: Caprice Tejeda is a 73 year old female with colon polyp in the past, last colonoscopy 5 years ago Review of Systems Review of Systems: All systems reviewed & are unremarkable except as noted in HPI and below PMFSH Past Medical History Medical History Body mass index [BMI] 29.0-29.9, adult (08/29/18) Cataract Depression Folic acid deficiency (non anemic) Hyperlipidemia Nontoxic multinodular goiter Obstructive sleep apnea Osteoporosis Vitamin B12 deficiency Vitamin D deficiency Surgical History Surgical History H/O cardiac catheterization H/O cataract extraction History of hip replacement, total bilateral History of removal of pigmented skin lesion left arm S/P total knee arthroplasty Right knee 06/28/2022 Dr. Early Status post total left knee replacement Family History Family History Other Asthma Cerebrovascular accident Diabetes mellitus Family history of arthritis Family history of cardiovascular disease Family history of osteoporosis Family history of thyroid disease Social History Social History (Updated 07/17/23 @ 08:58 by Julieta Veronica [facility]) Social History: the patient has been for almost 52 years now. 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 She has 2 children. She does not use any marijuana alcohol or illicit drugs. Code status full code Smoking status: Never smoker Second hand tobacco smoke exposure: No Additional smoking assessment comments: PT DENIES ALL FORMS OF TOBACCO USE Alcohol intake: never Substance use: never Substance use type: does not use Do You Feel Safe in your Home?: Yes Lack of Transportation: No Lack of Food: Never True Current Housing: I Have Housing Concerned About Future Housing: No Difficulty Paying Gas/Electric Bills: No Difficulty Paying for Meds: No Currently Unemployed: No Education: Associate Degree Difficulty w/ Childcare or Family Care: No Living arrangements: with family Occupation/Education: retired Gender identity (if verbalized by the patient): Female Spiritual care concerns: No Meds Home Medications and Allergies Home Medications Medication Instructions Recorded Confirmed Type cyanocobalamin (vitamin B-12) 500 mcg PO DAILY 12/30/21 07/25/23 History 1,000 mcg tablet esomeprazole magnesium 20 mg 20 mg PO DAILY 12/30/21 07/25/23 History capsule,delayed release (Nexium) folic acid 400 mcg tablet 0.4 mg PO DAILY 12/30/21 07/25/23 History Ca 600 mg-D3 20 mcg-mag oxide 50 1 tablet PO DAILY 06/20/22 07/25/23 History qb-Mp-rfbpcx-manganese-boron tablet (Calcium 600-D3 Plus (mag-zinc)) ascorbic acid (vitamin C) 500 mg 500 mg PO DAILY 06/20/22 07/25/23 History tablet (Vitamin C) cholecalciferol (vitamin D3) 25 25 mcg PO DAILY 06/20/22 07/25/23 History mcg (1,000 unit) capsule atorvastatin 40 mg tablet 40 mg PO QHS #90 tabs 05/29/23 07/25/23 Rx omega 9-xvk-bin-fish oil 1,000 mg 1 cap PO BID 05/29/23 07/25/23 History (120 mg-180 mg) capsule (Fish Oil) citalopram 20 mg tablet 30 mg PO DAILY #135 tabs 06/26/23 07/25/23 Rx prednisone 10 mg tablet 10 mg PO BID #20 tabs 07/17/23 07/25/23 Rx Allergies Allergy/AdvReac Type Severity Reaction Status Date / Time No Known Allergies Allergy Verified 07/25/23 10:18 Vital Signs Vital Signs - 24 hr 07/25/23 10:05 Temperature 96.7 F L Pulse Rate 78 Respiratory Rate 16 Blood
[2023-07-25 11:21] VITALS: BP 119/69; PULSE 63; RESP 19; O2SAT 99
[2023-07-25 11:31] VITALS: BP 121/64; PULSE 64; RESP 21; O2SAT 99
[2023-07-25 11:41] VITALS: BP 124/70; PULSE 63; RESP 19; O2SAT 100
== END 2023-07-25 11:56 | disposition home or self-care (01) ==
PROVIDERS: PCP Physician Assistant Medical; Visit Provider Internal Medicine Gastroenterology
PROC: 0DJD8ZZ Inspection of Lower Intestinal Tract, Via Natural or Artificial Opening Endoscopic (ICD-10-PCS; CPT 45378; principal; 2023-07-25 11:30)
DX: Z12.11 Encounter for screening for malignant neoplasm of colon (principal); K57.30 Diverticulosis of large intestine without perforation or abscess without bleeding; K64.8 Other hemorrhoids; Z86.010 Personal history of colon polyps; E78.5 Hyperlipidemia, unspecified; G47.33 Obstructive sleep apnea (adult) (pediatric); E55.9 Vitamin D deficiency, unspecified; E53.8 Deficiency of other specified B group vitamins; F32.A Depression, unspecified; E66.9 Obesity, unspecified; Z68.30 Body mass index [BMI] 30.0-30.9, adult
CPT/HCPCS: G0105; J2704; J7120

== ENCOUNTER 2023-09-05 12:30 | Outpatient (RCR) | payer MEDICARE, SELFPAY ==
--- NOTE | 2023-07-27 14:08 | OPREHPOC ---
Outpatient Therapy Plan of Care This is a Multidisciplinary Plan of Care that may contain components documented by all disciplines (PT, OT, and ST.) PT Problem 1 PT Problem #1 Knowledge Deficit PT Goal 1 Goal Pt to be IND with issued HEP Target Visit 8 PT Problem 2 PT Problem #2 Pain PT Goal 1 Goal Pt to report back pain no greater than 3/10 in the last week. Target Visit 8 PT Goal 2 Goal Pt to report 75% improvement in overall symptoms. Target Visit 8 PT Problem 3 PT Problem #3 Impaired Gait PT Goal 1 Goal Pt to demonstrate neutral pelvic motion during ambulation. Target Visit 8 PT Goal 2 Goal Pt to be able to ambulate 30 mins without an increase in pain. Target Visit 8 PT Problem 4 PT Problem #4 Impaired Functional Mobil PT Goal 1 Goal Pt to demonstrate a functional lift and carry with 20lb without compensations.
--- NOTE | 2023-07-27 14:08 | PTOPEVAL1 ---
Assessment and note entered by Juan Tenorio, PT, DPT Evaluation Information Assessment Status Evaluation Diagnosis lumbar stenosis Subjective Information Pt states she has low back pain that mostly increases with prolonged standing. Pt states she has had both knees and both hips replaced, and wonders if this is playing a factor. She states sitting for a period of time helps to decrease her pain. She can stand for no longer than 15-20 mins . Pt enjoys walking, but is limited to 20-30 mins at a max. Reported Pain Level Pain Score 0: Self Report Assessment PT Clinical Summary Caprice presents to therapy today for her initial evaluation with a diagnosis of lumbar stenosis. Today she demonstrates decreased hip strength, hip asymmetries with length testing, and decreased hip extension ROM. Pt demonstrates movement bias during gait as well as an anterior pelvic tilt during standing. Skilled therapy services are indicated to improve alignment, manage pain, educate on body mechanics, and to return to PLOF. Plan of Care Interventions Electrical Stimulation,Gait Training,Hot Pack/Cold Pack,Manual Therapy,Neuro Re-education,Patient/ Caregiver Educati,Therapeutic Activities, Therapeutic Exercise PT Services Indicated Yes Treatment Frequency and 2x/wk for 7 visits Duration These treatments will address the objective and functional deficits as defined above. The patient will be advanced safely and appropriately in order for the patient to progress towards his/her prior level of function. Additional exercises will be introduced and as well as a comprehensive home exercise program upon discharge, if needed, ?to ensure carryover of functional gains achieved in the clinic. This treatment plan has been reviewed and agreement upon by the patient.
--- NOTE | 2023-09-05 13:24 | OPREHPOC ---
Outpatient Therapy Plan of Care This is a Multidisciplinary Plan of Care that may contain components documented by all disciplines (PT, OT, and ST.) PT Problem 1 PT Problem #1 Knowledge Deficit PT Goal 1 Goal Pt to be IND with issued HEP Target Visit 8 Progress Met PT Problem 2 PT Problem #2 Pain PT Goal 1 Goal Pt to report back pain no greater than 3/10 in the last week. Target Visit 8 Progress Met PT Goal 2 Goal Pt to report 75% improvement in overall symptoms. Target Visit 8 Progress Met PT Problem 3 PT Problem #3 Impaired Gait PT Goal 1 Goal Pt to demonstrate neutral pelvic motion during ambulation. Target Visit 8 Progress Met PT Goal 2 Goal Pt to be able to ambulate 30 mins without an increase in pain. Target Visit 8 Progress Met PT Problem 4 PT Problem #4 Impaired Functional Mobil PT Goal 1 Goal Pt to demonstrate a functional lift and carry with 20lb without compensations. Progress Met
--- NOTE | 2023-09-05 13:24 | PTOPDC ---
Assessment and note entered by Tee James, PT Evaluation Information Assessment Status Discharge Diagnosis lumbar stenosis Subjective Information Patient reports that she is doing a lot better. Therapy has really helped with motion and strength and she feels she is capable of doing most everything that she needs to. Plans to continue with core and hip strengthening as she has been instructed. Reported Pain Level Pain Score 0: Self Report Assessment PT Clinical Summary Patient has met all goals for therapy at this time and is suitable for D/C to HEP. No concerns at this time as patient appears to be greatly improved and compliant with exercises. Plan of Care PT Services Indicated D/C to HEP
== END 2023-09-05 13:43 | disposition home or self-care (01) ==
LOC: ANHGOSHPT 12:30
PROVIDERS: PCP Physician Assistant Medical; Visit Provider Orthopaedic Surgery
DX: M48.061 Spinal stenosis, lumbar region without neurogenic claudication (principal)
CPT/HCPCS: 97110; 97140; 97161; 97530